=== PATIENT | female | born 1950 | race Caucasian/White ===

== ENCOUNTER → 2023-09-24 08:07 | Outpatient (REF) | payer OTHER, SELFPAY ==
[2023-09-24 12:14] LABS: ALT (SGPT) 24 U/L (0-35); AST (SGOT) 33 U/L (14-36); Albumin 3.9 g/dl (3.5-5.0); Alkaline Phosphatase 42 U/L (38-126); Blood Urea Nitrogen 28 mg/dl (7-17); Calcium 9.2 mg/dl (8.4-10.2); Carbon Dioxide 23 mmol/L (22-30); Chloride 106 mmol/L (98-107); Glucose 73 mg/dl (70-99); Potassium 4.8 mmol/L (3.5-5.1); Sodium 132 mmol/L (135-145); Total Bilirubin 0.3 mg/dl (0.2-1.3); Total Protein 6.3 g/dl (6.3-8.2); eGFR > 60.00
== END ==
LOC: RAD 08:07
PROVIDERS: ATTENDING PHYSICIAN Internal Medicine Rheumatology; FAMILY PHYSICIAN Family Medicine
DX: M81.0 Age-related osteoporosis without current pathological fracture (principal)
CPT/HCPCS: 36415; 77080; 80053

== ENCOUNTER → 2024-03-08 16:21 | Outpatient (REF) | payer OTHER, SELFPAY | LOC: RAD 16:21 | PROVIDERS: ATTENDING PHYSICIAN Orthopaedic Surgery; FAMILY PHYSICIAN Family Medicine | DX: M41.26 Other idiopathic scoliosis, lumbar region (principal) | CPT/HCPCS: 72128; 72131 ==

== ENCOUNTER 2024-06-20 09:20 | Inpatient (IN) | payer OTHER, SELFPAY ==
[2024-06-16] VITALS (13 sets, daily range): BP systolic 100–125; BP diastolic 54–77; BMI 22.4; BMI 21.6
[2024-06-16 09:50] LABS: COVID-19 Antigen Negative (Negative)
[2024-06-16 10:00] LABS: ALT (SGPT) 17 U/L (0-35); AST (SGOT) 22 U/L (14-36); Albumin 3.6 g/dl (3.5-5.0); Alkaline Phosphatase 43 U/L (38-126); Blood Urea Nitrogen 16 mg/dl (7-17); Calcium 8.6 mg/dl (8.4-10.2); Carbon Dioxide 24 mmol/L (22-30); Chloride 104 mmol/L (98-107); Estimated Creatinine Clearance 47 ml/min; Glucose 173 mg/dl (70-99); Potassium 3.9 mmol/L (3.5-5.1); Sodium 133 mmol/L (135-145); Total Bilirubin 0.4 mg/dl (0.2-1.3); Total Protein 6.1 g/dl (6.3-8.2); eGFR > 60.00
--- NOTE | 2024-06-16 11:09 | ED.GENMED ---
History of Present Illness
<VALERIY Moraes - Last Filed: 06/16/24 13:06>
General
Chief Complaint: Cold/Flu/URI Symptoms
Source: patient and family
Exam Limitations: none
Time Seen by Provider: 06/16/24 09:50
History of Present Illness
History of Present Illness:
This is a 73 y/o female with PMH of osteoporosis who presents to the ED with CC of cold/flu/URI sx x 3 days. She admits to a non-productive, dry, hacking cough that began on Thursday and is worsening. Pt had a syncopal episode this morning with
prodromal sx of dizziness, pallor and diaphoresis. She was held by her during the episode and denies hitting her head. She vomited once this morning and admits to mild nausea currently. Admits to mild headache localized to the frontal head
and a feeling of pressure in this area. Admits to receiving the flu vaccine this year. Denies any tobacco use. Denies fever/chills, palpitations, chest pain, dyspnea, sore throat, diarrhea, and abdominal pain.
If applicable-neuro sx onset
Onset of symptoms known: Yes
Date of onset of symptoms: 06/13/24
Past History
<VALERIY Moraes - Last Filed: 06/16/24 13:06>
Past History
ED Past Medical History: Other (osteoporosis )
ED Past Surgical History: Other (Spinal fusion)
Social History
Tobacco: Non-smoker
Personal:
Living: with family
Review of Systems
<VALERIY Moraes - Last Filed: 06/16/24 13:06>
Review of Systems
All Other Systems: ROS reviewed and negative except as documented in HPI and ROS
Constitutional: Reports no symptoms
EENT: Reports no symptoms
Respiratory: Reports cough
Cardiac: Reports syncope
ABD/GI: Reports nausea and vomiting
: Reports no symptoms
Musculoskeletal: Reports no symptoms
Skin: Reports no symptoms
Neurological: Reports dizzy and headache
Endocrine: Reports no symptoms
Hematologic/Lymphatic: Reports swollen glands
Phy Exam
<Lakisha Avila [facility] - Last Filed: 06/16/24 13:06>
Physical Exam
Physical Exam:
General: Pt is a white female, alert, cooperative, well-groomed, well-nourished and well-developed who appears about her stated age and is in no acute distress. Pt communicates well, makes appropriate eye contact and expresses appropriate concern
throughout history. No gross physical or neurological abnormalities noted.
Skin: [place], soft, well-hydrated; turgor with instant recoil
HEENT: head atraumatic, normocephalic; PERRLA; red reflex present; submandibular and tonsillar lymph nodes palpable and nontender; buccal mucosa pink and moist; pharynx without erythema or exudates; no hoarseness, clearly enunciates words.
Resp: muscle and respiratory effort symmetric without use of accessory muscles; mildly distant vesicular breath sounds throughout without adventitious sounds; even, quiet breathing.
Heart: No lifts or heaves visible; S1/S2 timed with carotid pulse and heard without splitting; RRR
PV: radial, dorsalis pedis and posterior tibial pulses all intact bilaterally; no edema, swelling, varicosities or tenderness in LE
Abd: soft, flat, non-distended abdomen; aorta midline with no visible pulsation; normoactive bowel sounds; no tenderness on palpation
Course
<Lakisha Avila [facility] - Last Filed: 06/16/24 13:06>
Orders/Labs/Results
Orders:
Orders
06/16/24 09:26
Electrocardiogram (*1) Urgent
Reason for Study: Syncope
06/16/24 09:27
EKG- Treatment ONCE
06/16/24 09:30
CMP [Comprehensive Metabolic Panel] Urgent
COVID-19 Antigen Urgent
Source: Nasal Swab
INF RAPID [Influenza A+B Rapid Molecular] Urgent
MASOUD Source: Nasal Swab
Specimen Description:
06/16/24 10:49
CXR2 [CR Chest - 2 Views ] Urgent
Comment:
Reason For Exam: cough, flu positive
06/16/24 11:10
Complete Blood Count/With Diff Urgent
Abnormal Lab Results
06/16/24 06/16/24
09:30 11:10
RBC 3.84 L 10^6/uL
(4.20-5.40)
MCV 99.2 H fL
(81.0-99.0)
MCH 33.9 H pg
(27.0-31.0)
MPV 11.1 H fL
(7.4-10.4)
Absolute Neuts (auto) 7.0 H 10^3/uL
(1.4-6.5)
Absolute Lymphs (auto) 0.5 L 10^3/uL
(1.2-3.4)
Absolute Monos (auto) 0.7 H 10^3/uL
(0.1-0.6)
Neutrophils % 84.3 H %
(42.2-75.2)
Lymphocytes % 6.1 L %
(20.5-51.1)
Sodium 133 L mmol/L
(135-145)
Glucose 173 H mg/dl
(70-99)
Total Protein 6.1 L g/dl
(6.3-8.2)
06/16/24 11:10
06/16/24 09:30
Vital Signs
Initial and Last Documented VS:
Initial Vital Signs
Temp Pulse Resp BP Pulse Ox
98.4 F 75 18 104/66 98
06/16/24 09:17 06/16/24 09:17 06/16/24 09:17 06/16/24 09:17 06/16/24 09:17
Last Documented Vital Signs
Temp Pulse Resp BP Pulse Ox
98.4 F 78 21 104/67 96
06/16/24 09:17 06/16/24 11:15 06/16/24 11:15 06/16/24 11:00 06/16/24 11:15
<Denny Kapoor MD - Last Filed: 06/16/24 13:24>
Orders/Labs/Results
Orders:
Orders
06/16/24 09:26
Electrocardiogram (*1) Urgent
Reason for Study: Syncope
06/16/24 09:27
EKG- Treatment ONCE
06/16/24 09:30
CMP [Comprehensive Metabolic Panel] Urgent
COVID-19 Antigen Urgent
Source: Nasal Swab
INF RAPID [Influenza A+B Rapid Molecular] Urgent
MASOUD Source: Nasal Swab
Specimen Description:
06/16/24 10:49
CXR2 [CR Chest - 2 Views ] Urgent
Comment:
Reason For Exam: cough, flu positive
06/16/24 11:10
Complete Blood Count/With Diff Urgent
Abnormal Lab Results
06/16/24 06/16/24
09:30 11:10
RBC 3.84 L 10^6/uL
(4.20-5.40)
MCV 99.2 H fL
(81.0-99.0)
MCH 33.9 H pg
(27.0-31.0)
MPV 11.1 H fL
(7.4-10.4)
Absolute Neuts (auto) 7.0 H 10^3/uL
(1.4-6.5)
Absolute Lymphs (auto) 0.5 L 10^3/uL
(1.2-3.4)
Absolute Monos (auto) 0.7 H 10^3/uL
(0.1-0.6)
Neutrophils % 84.3 H %
(42.2-75.2)
Lymphocytes % 6.1 L %
(20.5-51.1)
Sodium 133 L mmol/L
(135-145)
Glucose 173 H mg/dl
(70-99)
Total Protein 6.1 L g/dl
(6.3-8.2)
06/16/24 11:10
06/16/24 09:30
Vital Signs
Initial and Last Documented VS:
Initial Vital Signs
Temp Pulse Resp BP Pulse Ox
98.4 F 75 18 104/66 98
06/16/24 09:17 06/16/24 09:17 06/16/24 09:17 06/16/24 09:17 06/16/24 09:17
Last Documented Vital Signs
Temp Pulse Resp BP Pulse Ox
98.4 F 78 21 104/67 96
06/16/24 09:17 06/16/24 11:15 06/16/24 11:15 06/16/24 11:00 06/16/24 11:15
<VALERIY Moraes - Last Filed: 06/16/24 13:06>
MDM/Problems Addressed
Differential Diagnosis Includes:
Flu, r/o secondary flu pneumonia vs bacterial pneumonia.
<VALERIY Moraes - Last Filed: 06/16/24 13:06>
*Critical Care Note
Total Time (30-74mins, 75-104mins- exclusive of procedures): Not Applicable
<Denny Kapoor MD - Last Filed: 06/16/24 13:24>
*Radiology
Radiology exam reviewed: preliminary read by ED provider (Negative chest x-ray) and radiology read reviewed (Negative chest x-ray)
*Pulse Oximetry
Patient hypoxic: no
ED Attending Note
<VALERIY Moraes - Last Filed: 06/16/24 13:06>
-
Portions of this chart may have been created with voice recognition software.� Occasional wrong word or��sound alike� substitutions may have occurred due to the inherent limitations of voice recognition software.
<Denny Kapoor MD - Last Filed: 06/16/24 13:24>
ED Attending Note
Patient seen and examined by attending physician: Yes
I performed the substantive portion of visit, reviewed & personally made and approve the management plan that is documented in note by myself or ROGER.: Yes
ED Attending Note:
73-year-old female started with a cough 2 to 3 days ago. Probably 3 days ago. Some congestion myalgias. This morning had a syncopal episode while sitting. [place] lightheaded prior. No chest pain or shortness of breath. Has been generally weak
appearing.
GENERAL: Alert and oriented in no apparent distress
EYE: Orbits normal.
NECK: Supple
CARDIAC: Regular rate and rhythm without any obvious murmurs.
LUNGS: No respiratory distress. Occasional cough. No wheezing rhonchi or rales.
ABDOMEN: Soft, without focal tenderness or distention
NEUROLOGICAL: Alert and oriented , grossly non-focal
SKIN: Warm and dry, no rash or lesion, no discoloration, skin intact.
MUSCULOSKELETAL: No edema,no deformity.Good color
PSYCH: Normal and appropriate interaction.
Patient influenza positive. Other labs stable. Minimal hyperglycemia. Monitor normal sinus rhythm. EKG normal sinus rhythm with no acute changes. QT normal. Patient symptom complex all consistent with the flu and vasovagal syncope secondary to
dehydration and weakness in the flu. Nothing to support pulmonary emboli. No pleuritic pain no shortness of breath. Stable vital signs. Patient and family were offered admission if she feels too weak to go home although medically this can be
managed at home. They are comfortable with outpatient management. Discussed Tamiflu. She is likely day 3. Indication is minimal at this time. It was offered however. Personally at this time I would hold off Tamiflu and family is comfortable
with this. We will ambulate prior to discharge
Discharge Plan
Departure
Patient Disposition: Home (Routine Discharge)
Date of Disposition: 06/16/24
Time of Disposition: 13:20
Patient with high blood pressure during this ER visit?: No
Discharge Problem:
Influenza, syncope
Instructions: Flu in adults - Discharge instructions, Syncope (fainting) - Discharge instructions
Referrals:
Denny Kang, [Family Provider] - Follow up in 2-3 days
Activity Restrictions/Additional Instructions:
Of note, your blood sugar is mildly elevated. This is nothing emergent but should be followed up routinely with your primary physician
Interventions
Interventions:
*Risk Screen - Suicide Last Done: 06/16/24 09:17
*General Assessment Last Done: 06/16/24 09:17
*Neglect/Abuse Screening Last Done: 06/16/24 09:17
*ED COVID-19 Vaccine History Last Done: 06/16/24 09:17
ED- Pulmonary Assessment Last Done: 06/16/24 11:30
Discharge Date and Time
Print Language: HUNGARIAN
[2024-06-16 11:32] LABS: % Basophils 0.4 % (0-2); % Eosinophils 0.1 % (0-6); % Immature Granulocytes 0.5 % (0-0.5); % Lymphocytes 6.1 % (20.5-51.1); % Monocytes 8.6 % (1.7-9.3); % Neutrophils 84.3 % (42.2-75.2); Absolute Lymphocytes 0.5 10^3/uL (1.2-3.4); Absolute Monocytes 0.7 10^3/uL (0.1-0.6); Hematocrit 38.1 % (37.0-47.0); Mean Corp Hgb Conc. 34.1 g/dL (33.0-37.0); Mean Corpuscular Hgb 33.9 pg (27.0-31.0); Mean Corpuscular Volume 99.2 fL (81.0-99.0); Nucleated Red Blood Cells % 0 %; Red Blood Cell Count 3.84 10^6/uL (4.20-5.40); White Blood Cell Count 8.2 10^3/uL (4.8-10.8)
[2024-06-16 12:01] LABS: Platelet Count 132 10^3/uL (130-400)
[2024-06-16 12:02] LABS: Mean Platelet Volume 11.1 fL (7.4-10.4)
--- NOTE | 2024-06-16 13:07 | ED.GENMED ---
History of Present Illness
<Denny Kapoor MD - Last Filed: 06/16/24 13:43>
General
Chief Complaint: Cold/Flu/URI Symptoms
Time Seen by Provider: 06/16/24 09:50
Past History
<VALERIY Moraes - Last Filed: >
Past History
ED Past Medical History: Other (osteoporosis )
ED Past Surgical History: Other (Spinal fusion)
Social History
Tobacco: Non-smoker
Personal:
Living: with family
Course
<Denny Kapoor MD - Last Filed: 06/16/24 13:43>
Orders/Labs/Results
Orders:
Orders
06/16/24 09:26
Electrocardiogram (*1) Urgent
Reason for Study: Syncope
06/16/24 09:27
EKG- Treatment ONCE
06/16/24 09:30
CMP [Comprehensive Metabolic Panel] Urgent
COVID-19 Antigen Urgent
Source: Nasal Swab
INF RAPID [Influenza A+B Rapid Molecular] Urgent
MASOUD Source: Nasal Swab
Specimen Description:
06/16/24 10:49
CXR2 [CR Chest - 2 Views ] Urgent
Comment:
Reason For Exam: cough, flu positive
06/16/24 11:10
Complete Blood Count/With Diff Urgent
Abnormal Lab Results
06/16/24 06/16/24
09:30 11:10
RBC 3.84 L 10^6/uL
(4.20-5.40)
MCV 99.2 H fL
(81.0-99.0)
MCH 33.9 H pg
(27.0-31.0)
MPV 11.1 H fL
(7.4-10.4)
Absolute Neuts (auto) 7.0 H 10^3/uL
(1.4-6.5)
Absolute Lymphs (auto) 0.5 L 10^3/uL
(1.2-3.4)
Absolute Monos (auto) 0.7 H 10^3/uL
(0.1-0.6)
Neutrophils % 84.3 H %
(42.2-75.2)
Lymphocytes % 6.1 L %
(20.5-51.1)
Sodium 133 L mmol/L
(135-145)
Glucose 173 H mg/dl
(70-99)
Total Protein 6.1 L g/dl
(6.3-8.2)
06/16/24 11:10
06/16/24 09:30
Vital Signs
Initial and Last Documented VS:
Initial Vital Signs
Temp Pulse Resp BP Pulse Ox
98.4 F 75 18 104/66 98
06/16/24 09:17 06/16/24 09:17 06/16/24 09:17 06/16/24 09:17 06/16/24 09:17
Last Documented Vital Signs
Temp Pulse Resp BP Pulse Ox
98.4 F 94 20 100/62 97
06/16/24 09:17 06/16/24 13:41 06/16/24 13:41 06/16/24 13:41 06/16/24 13:41
<VALERIY Moraes - Last Filed: >
Orders/Labs/Results
Orders:
Orders
06/16/24 09:26
Electrocardiogram (*1) Urgent
Reason for Study: Syncope
06/16/24 09:27
EKG- Treatment ONCE
06/16/24 09:30
CMP [Comprehensive Metabolic Panel] Urgent
COVID-19 Antigen Urgent
Source: Nasal Swab
INF RAPID [Influenza A+B Rapid Molecular] Urgent
MASOUD Source: Nasal Swab
Specimen Description:
06/16/24 10:49
CXR2 [CR Chest - 2 Views ] Urgent
Comment:
Reason For Exam: cough, flu positive
06/16/24 11:10
Complete Blood Count/With Diff Urgent
Abnormal Lab Results
06/16/24 06/16/24
09:30 11:10
RBC 3.84 L 10^6/uL
(4.20-5.40)
MCV 99.2 H fL
(81.0-99.0)
MCH 33.9 H pg
(27.0-31.0)
MPV 11.1 H fL
(7.4-10.4)
Absolute Neuts (auto) 7.0 H 10^3/uL
(1.4-6.5)
Absolute Lymphs (auto) 0.5 L 10^3/uL
(1.2-3.4)
Absolute Monos (auto) 0.7 H 10^3/uL
(0.1-0.6)
Neutrophils % 84.3 H %
(42.2-75.2)
Lymphocytes % 6.1 L %
(20.5-51.1)
Sodium 133 L mmol/L
(135-145)
Glucose 173 H mg/dl
(70-99)
Total Protein 6.1 L g/dl
(6.3-8.2)
06/16/24 11:10
06/16/24 09:30
Vital Signs
Initial and Last Documented VS:
Initial Vital Signs
Temp Pulse Resp BP Pulse Ox
98.4 F 75 18 104/66 98
06/16/24 09:17 06/16/24 09:17 06/16/24 09:17 06/16/24 09:17 06/16/24 09:17
Last Documented Vital Signs
Temp Pulse Resp BP Pulse Ox
98.4 F 94 20 100/62 97
06/16/24 09:17 06/16/24 13:41 06/16/24 13:41 06/16/24 13:41 06/16/24 13:41
<Denny Kapoor MD - Last Filed: 06/16/24 13:43>
Update Note
Update Note:
We attempted to send the patient home. She did not tolerate standing walking moving around. Will be admitted for fluids and further care
ED Attending Note
<VALERIY Moraes - Last Filed: >
-
Portions of this chart may have been created with voice recognition software.� Occasional wrong word or��sound alike� substitutions may have occurred due to the inherent limitations of voice recognition software.
Discharge Plan
Departure
Patient Disposition: Admit
Date of Disposition: 06/16/24
Time of Disposition: 13:20
Patient with high blood pressure during this ER visit?: No
Discharge Problem:
Influenza, syncope
Instructions: Flu in adults - Discharge instructions, Syncope (fainting) - Discharge instructions
Referrals:
Denny Kang, [Family Provider] - Follow up in 2-3 days
Activity Restrictions/Additional Instructions:
Of note, your blood sugar is mildly elevated. This is nothing emergent but should be followed up routinely with your primary physician
Interventions
Interventions:
*Risk Screen - Suicide Last Done: 06/16/24 09:17
*General Assessment Last Done: 06/16/24 09:17
*Neglect/Abuse Screening Last Done: 06/16/24 09:17
*ED COVID-19 Vaccine History Last Done: 06/16/24 09:17
ED- Pulmonary Assessment Last Done: 06/16/24 11:30
Discharge Date and Time
Print Language: SETSWA[place]
--- NOTE | 2024-06-16 14:41 | HPS.HSE ---
Family Physician
-
Family Physician: Denny Kang
Chief Complaint
-
syncope
History of Present Illness
73-year-old female past medical history of osteoporosis here with cough and shortness of breath for the past day. Denies any fever or sore throat. Has some headache and bodyaches. She had an episode of passing out today after breakfast while
seated at the table. She had an episode of vomiting afterwards. No diarrhea. No sick contacts.
She does not smoke or drink alcohol.
Medical History
Past Medical History
Past Medical History: Reports Other (osteoporosis )
Past Surgical History: Reports Other (spine surgery, foot surgery )
Social History
Tobacco: Non-smoker
Alcohol: None
Drug: None
Family History
Family History: Not pertinent
Allergies / Home Medications
Allergies reflects when Allergies were last updated in [facility].
Home Medications with original date entered in [facility]
Allergy/Medication List:
Not available
Review of Systems
-
History Source: Patient
A 12 point ROS was completed and negative except as noted: Yes
Constitutional: Reports No Symptoms
EENT: Reports No Symptoms
Respiratory: Reports No Symptoms
Cardiac: Reports No Symptoms
Abdomen/GI: Reports No Symptoms
: Reports No Symptoms
Musculoskeletal: Reports No Symptoms
Skin: Reports No Symptoms
Neurological: Reports No Symptoms
Endocrine: Reports No Symptoms
Hematologic/Lymphatic: Reports No Symptoms
Psych: Reports No Symptoms
Physical Exam
Vital Signs
Vital Signs
Temp Pulse Resp BP Pulse Ox
98.4 F 80 24 105/70 96
06/16/24 09:17 06/16/24 14:15 06/16/24 14:15 06/16/24 14:00 06/16/24 14:15
Physical Exam
General: Well Developed, Well Nourished and No Apparent Distress
HEENT: NormoCephalic, Moist mucous membranes and Atraumatic
Respiratory: Clear
Cardiac: S1/S2 and Regular Rhythm; No Murmur or Rub
GI: Soft, Non Tender, Non Distended and Normal Bowel Sounds; No Organomegaly
Rectal: Deferred by Provider
Musculoskeletal: No Clubbing, No Cyanosis and No Edema
Skin: No Rash
Neuro: Nonfocal/grossly intact
Laboratory Results
-
06/16/24 11:10
06/16/24 09:30
Laboratory Results
Total Bilirubin 0.4 mg/dl (0.2-1.3) 06/16/24 09:30
AST 22 U/L (14-36) 06/16/24 09:30
ALT 17 U/L (0-35) 06/16/24 09:30
Alkaline Phosphatase 43 U/L (38-126) 06/16/24 09:30
Data Reviewed
-
Lab Data: Labs Reviewed by me
Old Records: Reviewed
Impression/Plan
-
IMPRESSION:
PLAN:
# Influenza A infection
-Chest x-ray unremarkable
-Tamiflu
# Syncope secondary to decreased p.o. intake from influenza
-IV fluids
Osteoporosis
-on Prolia
Spinal stenosis status post surgery
-Continue Lyrica, celecoxib, Tylenol
Full code
DVT prophylaxis�heparin
Regular diet
--- NOTE | 2024-06-16 15:00 | PHANOTE ---
med rec note- spouse going home to verify topiramate dose [facility] but patient stated there 50mg. patient med list does not have it list on the med list
[2024-06-16] MEDS: NSS 1000 IV (19:23)
[2024-06-16] MEDS: HEPARIN 5000 UNITS SC (19:33)
[2024-06-16] MEDS: TAMIFLU 30 MG PO (19:43)
[2024-06-16] MEDS: VITAMIN D3 (cholecalciferol) 25 MCG PO (19:44)
[2024-06-16] MEDS: OSCAL 500 + D 500 MG PO (19:54)
[2024-06-16] MEDS: LYRICA 225 MG PO (21:05)
[2024-06-16] MEDS: ZOFRAN 4 MG IV (23:39)
[2024-06-16] MEDS: OFIRMEV 100 IV (23:45)
[2024-06-17] VITALS (8 sets, daily range): BP systolic 85–121; BP diastolic 50–68; PULSE 92; O2SAT 92
--- NOTE | 2024-06-17 00:23 | PTCARENOTE ---
Assumed care of patient at from day shift RN. Pt in bed, flat and drowsy. AAOX3. at bedside.
2330 Pt c/o nausea, vomited moderate amount. Temp 100.9. PRN Zofran ordered by WINDOWS VMWARE ENGINEER and administered. IV Ofirmev ordered and administered. BP elevated.
0020 Pt states she feels 'a little better.' No further vomiting. BP 101/54.
[2024-06-17 09:08] LABS: Hematocrit 38.6 % (37.0-47.0); Mean Corp Hgb Conc. 33.7 g/dL (33.0-37.0); Mean Corpuscular Hgb 33.6 pg (27.0-31.0); Mean Corpuscular Volume 99.7 fL (81.0-99.0); Mean Platelet Volume 11.6 fL (7.4-10.4); Platelet Count 127 10^3/uL (130-400); Red Blood Cell Count 3.87 10^6/uL (4.20-5.40); Red Cell Dist. Width 14.3 % (11.5-14.5); White Blood Cell Count 5.2 10^3/uL (4.8-10.8)
[2024-06-17 09:12] LABS: ALT (SGPT) 15 U/L (0-35); AST (SGOT) 26 U/L (14-36); Albumin 3.1 g/dl (3.5-5.0); Alkaline Phosphatase 47 U/L (38-126); Blood Urea Nitrogen 12 mg/dl (7-17); Calcium 8.4 mg/dl (8.4-10.2); Carbon Dioxide 19 mmol/L (22-30); Chloride 106 mmol/L (98-107); Estimated Creatinine Clearance 53 ml/min; Glucose 132 mg/dl (70-99); Potassium 3.8 mmol/L (3.5-5.1); Sodium 134 mmol/L (135-145); Total Bilirubin 0.5 mg/dl (0.2-1.3); Total Protein 5.7 g/dl (6.3-8.2); eGFR > 60.00
[2024-06-17 09:56] LABS: Absolute Neutrophils -Man Diff 4.6 10^3/uL (1.4-6.5); Band Neutrophils 16 % (0-3); Lymphocytes 7 % (20-51); Monocytes 4 % (2-9); Platelets Checked Yes; Segmented Neutrophils 73 % (42-75)
[2024-06-17 09:57] LABS: Normal RBC Morphology Yes; Total Cells Counted 100
[2024-06-17] MEDS: OSCAL 500 + D PO (10:42)
[2024-06-17] MEDS: VITAMIN D3 (cholecalciferol) PO (10:42)
[2024-06-17] MEDS: TAMIFLU 30 MG PO ×2 (10:44→21:35)
[2024-06-17] MEDS: PEPCID 40 MG PO (10:44)
[2024-06-17] MEDS: HEPARIN 5000 UNITS SC ×2 (10:45→21:34)
[2024-06-17] MEDS: LYRICA 150 MG PO (10:45)
[2024-06-17] MEDS: NSS 1000 IV (10:46)
[2024-06-17] MEDS: ZYRTEC 5 MG PO (10:46)
[2024-06-17] MEDS: TYLENOL 650 MG PO ×2 (13:34→21:34)
--- NOTE | 2024-06-17 14:33 | W.PN.HOSP.TC ---
Today's Communication/Plan
-
see note
Assessment / Plan
Assessment / Plan
1. Influenza A infection
Acute hypoxic respite insufficiency
-Chest x-ray did not show any over infiltrate
-Symptom onset less than 48 hours, started on Tamiflu
-Patient has significant weakness/lethargy
-Poor oral intake, IV fluid to be kept as patient developing hypoxia
-Continues to spike fever, symptomatic care. No signs of superimposed bacterial pneumonia. Monitor off abx.
2. Syncope
-Patient already having some pulmonary congestion
-Borderline/soft blood pressure, will add midodrine for pressure support
Osteoporosis
-on Prolia
Spinal stenosis status post surgery
-Continue Lyrica, celecoxib, Tylenol
Full code
DVT prophylaxis�heparin
Care plan discussed with patient spouse at bedside
Total time spent 52 mins
Anticipated Discharge: 24 - 48 hours
Subjective/Interval History
-
Date of Service: June 17, 2024
Patient hypoxic requiring oxygen support
Patient also quite lethargic/tired
Remains febrile
Minimal cough
Objective Data
-
Labs:
Laboratory Results
06/17/24
07:18
WBC 5.2
Hgb 13.0
Hct 38.6
Plt Count 127 L
Sodium 134 L
Potassium 3.8
Chloride 106
Carbon Dioxide 19 L
BUN 12
Creatinine 0.7
Glucose 132 H
Calcium 8.4
Total Bilirubin 0.5
AST 26
ALT 15
Alkaline Phosphatase 47
Vital Signs:
Vital Signs
Temp Pulse Resp BP Pulse Ox
103 F H 94 28 112/68 90
06/17/24 13:00 06/17/24 11:20 06/17/24 11:20 06/17/24 11:20 06/17/24 12:05
I&O
06/16/24 06/17/24 06/18/24
06:59 06:59 06:59
Intake Total 1000 / 1000
Balance 1000 / 1000
Review of Systems
-
Respiratory: Reports Cough and Trouble Breathing
Cardiac: Reports No Symptoms
Abdomen/GI: Reports No Symptoms
Physical Exam
-
General: No Apparent Distress and Comfortable
HEENT: Negative Oxygen
Cardiac: Regular Rhythm and S1/S2; Negative Murmur or Rub
GI: Soft, Nontender and Nondistended
Musculoskeletal: No Edema
Neuro: Awake, Alert, Oriented, No Motor Deficits and Nonfocal/Grossly Intact
Psych: Calm
--- NOTE | 2024-06-17 15:27 | CM ---
CM reviewed chart, patient seen bedside. Patient positive for Flu. Patient resides with her spouse in a single story home, no steps to enter. Patient denies DME, currently on O2, not on home O2. Patient reports VN in past after spine surgery, unsure
name of agency. Patient denies SNF. Patient confirms PCP Denny Kang, pharmacy [facility], confirms prescription coverage. Patient provided with VALLE form, verbally reviewed, placed in chart. CM will continue to follow for all discharge planning
needs.
Plan; home with no needs likely.
[2024-06-17] MEDS: ProAmatine 5 MG PO (15:29)
[2024-06-17] MEDS: MOTRIN 400 MG PO (22:48)
[2024-06-17] MEDS: LYRICA 225 MG PO (22:49)
[2024-06-17] MEDS: OSCAL 500 + D 500 MG PO (22:49)
[2024-06-17] MEDS: VITAMIN D3 (cholecalciferol) 25 MCG PO (22:49)
[2024-06-18] VITALS (9 sets, daily range): BP systolic 70–126; BP diastolic 40–75; PULSE 87–109; O2SAT 96
[2024-06-18] MEDS: NSS IV (00:10)
[2024-06-18] MEDS: ProAmatine 5 MG PO ×2 (00:59→04:06)
--- NOTE | 2024-06-18 04:25 | W.PN.UPDATE ---
Addendum entered and electronically signed by JUAN JOSE Garcia 06/18/24 05:25:
procal 16.53
lactic 1.5
bnp 955
creat up to 1.3 (0.9 yesterday)---> d/t poor appetite or from hypotensive state. Will reinstate fluids
Original Note:
Update Note
Progress Note Update
0100 RN reporting pt hypotensive sbp 70/40s manuallly. Pt continues with lethargy (unchanged from admit), but arousable and aaox3. PRN 5mg midodrine given. There was concern for possible fluis overload during previous shift for IVF were shut off.
Will hold of giving IVF for now.
0400 Repeat bP 80/44 manually. HR 56. Mentation remains same. Will give another dose of midodrine. Get stat labs. Also oxygen increased from 4L to 6L. Recheck CXR. Low threshold to transfer to IMU for closer monitoring and possible pressor.
0500 pCXR with RLL Pneumonia changed from cxr taken 06/16/23. Start abx
[2024-06-18 04:39] LABS: Hematocrit 33.6 % (37.0-47.0); Hemoglobin 11.3 g/dL (12.0-16.0); Mean Corp Hgb Conc. 33.6 g/dL (33.0-37.0); Mean Corpuscular Hgb 33.7 pg (27.0-31.0); Mean Corpuscular Volume 100.3 fL (81.0-99.0); Mean Platelet Volume 11.4 fL (7.4-10.4); Platelet Count 148 10^3/uL (130-400); Red Blood Cell Count 3.35 10^6/uL (4.20-5.40); Red Cell Dist. Width 14.2 % (11.5-14.5); White Blood Cell Count 3.5 10^3/uL (4.8-10.8)
[2024-06-18 05:01] LABS: Blood Urea Nitrogen 19 mg/dl (7-17); Calcium 8.3 mg/dl (8.4-10.2); Carbon Dioxide 20 mmol/L (22-30); Chloride 104 mmol/L (98-107); Estimated Creatinine Clearance 29 ml/min; Glucose 122 mg/dl (70-99); Sodium 132 mmol/L (135-145); eGFR 43.15
[2024-06-18 05:13] LABS: Lactic Acid 1.5 mmol/L (0.7-2.0)
[2024-06-18 05:21] LABS: Procalcitonin 16.53 ng/ml (0.0-0.25)
[2024-06-18 05:21] LABS: NT-proBNP 966 pg/ml
[2024-06-18] MEDS: STERILE WATER FOR INJECTION 10 ML IV (05:34)
[2024-06-18] MEDS: ROCEPHIN 1000 MG IV (05:34)
[2024-06-18] MEDS: NSS 1000 IV (05:34)
--- NOTE | 2024-06-18 07:59 | PTCARENOTE ---
0100: Pt's manual BP in both upper arms 70/40, HR in 60s on tele. Pt denies feeling lightheaded while in bed, AAOx3. PRN Midodrine 5mg provided to pt. VIJAYA Montez notified, will hold off on IVF d/t concern for fluid overload during day.
0330: Repeat BP after midodrine was 80/44 manually in pt's right upper arm, pt is still asymptomatic. VIAJYA Montez notified, stat midodrine 5mg ordered and given to pt. Stat portable CXR, proBNP, lactic acid, procalcitonin levels ordered by ICE CREAM TRUCK DRIVER.
0500: ICE CREAM TRUCK DRIVER read CXR results and ordered NS at 80 mL/hr as well as added new orders for IV Rocephin and PO Vibramycin. Pt updated on plan of care although pt not aware of new CXR results at this time as no provider was on the unit to read them to her.
0630: Pt reported feeling lightheaded after attempting to urinate on commode and was unable to void during shift. Pt bladder scan result showing 479 mL. VIJAYA Montez notified, orders placed for bladder scan and straight cath per protocol. Pt
straight cathed by this RN and resulted as 500 mL dark yellow urine. Bed alarm placed under pt d/t lightheadedness and low BP. Repeat manual BP by this RN in pt's right upper arm reading 86/48.
See VIJAYA Montez note.
[2024-06-18] MEDS: TAMIFLU 30 MG PO ×2 (09:00→20:16)
[2024-06-18] MEDS: OSCAL 500 + D 500 MG PO ×2 (09:00→20:16)
[2024-06-18] MEDS: PEPCID 40 MG PO (09:00)
[2024-06-18] MEDS: VIBRAMYCIN 100 MG PO (09:00)
[2024-06-18] MEDS: ZYRTEC 5 MG PO (09:00)
[2024-06-18] MEDS: VITAMIN D3 (cholecalciferol) 25 MCG PO ×2 (09:01→20:16)
[2024-06-18] MEDS: HEPARIN 5000 UNITS SC ×2 (09:01→20:16)
[2024-06-18] MEDS: LYRICA 150 MG PO (09:01)
--- NOTE | 2024-06-18 14:21 | W.PN.HOSP.TC ---
Today's Communication/Plan
-
see note
Assessment / Plan
Assessment / Plan
1. Influenza A infection
Acute hypoxic respite failure
-Chest x-ray did not show any over infiltrate
-Symptom onset less than 48 hours, started on Tamiflu
-Patient has significant weakness/lethargy
-Oral intake is better, oxygen requirement increased. Hold further IV fluid
2. Superimposed bacterial pneumonia
-Elevated procalcitonin ~ 16.5
-Started on empiric Rocephin/doxycycline
3. Hyponatremia
-mild, monitor
4. TOMAS
-Patient was getting IV fluid for last 36 hours, will hold further IV fluid as patient has a lot of secretions
-Suspecting prerenal from hypotension
-Avoid nephrotoxic medication
-Further testing if renal function does not improve in next 24 to 48 hours
5. Syncope
-Patient already having some pulmonary congestion
-Borderline/soft blood pressure, will add midodrine for pressure support
Osteoporosis
-on Prolia
Spinal stenosis status post surgery
-Continue Lyrica, celecoxib, Tylenol
Full code
DVT prophylaxis�heparin
Care plan discussed with patient spouse at bedside
Total time spent 53 mins
Anticipated Discharge: > 48 hours
Subjective/Interval History
-
Date of Service: June 18, 2024
Patient subjectively better
Continues to have significant secretions/hypoxic
afebrile in night
Objective Data
-
Labs:
Laboratory Results
06/18/24 06/18/24
04:24 04:26
WBC 3.5 L
Hgb 11.3 L
Hct 33.6 L
Plt Count 148
Sodium 132 L
Potassium 4.0
Chloride 104
Carbon Dioxide 20 L
BUN 19 H
Creatinine 1.3 H
Glucose 122 H
Calcium 8.3 L
Vital Signs:
Vital Signs
Temp Pulse Resp BP Pulse Ox
98.1 F 88 24 106/61 95
06/18/24 11:34 06/18/24 11:34 06/18/24 11:34 06/18/24 11:34 06/18/24 11:34
I&O
06/17/24 06/18/24 06/19/24
06:59 06:59 06:59
Intake Total 1000 / 1000 680 / 680 700 / 700
Output Total 500 / 500
Balance 1000 / 1000 680 / 680 200 / 200
Review of Systems
-
Respiratory: Reports Cough; Denies Wheezing
Cardiac: Reports No Symptoms
Abdomen/GI: Reports No Symptoms
Physical Exam
-
General: No Apparent Distress and Comfortable
HEENT: Negative Oxygen
Cardiac: Regular Rhythm and S1/S2; Negative Murmur or Rub
GI: Soft, Nontender and Nondistended
Musculoskeletal: No Edema
Neuro: Awake, Alert, Oriented, No Motor Deficits and Nonfocal/Grossly Intact
Psych: Calm
[2024-06-18] MEDS: TYLENOL 650 MG PO (16:07)
[2024-06-18] MEDS: ZOFRAN 4 MG IV (18:07)
[2024-06-18] MEDS: MIRALAX 17 GRAMS PO (18:17)
[2024-06-18] MEDS: VANCOCIN 530 MG IV (18:17)
[2024-06-18] MEDS: LYRICA 225 MG PO (22:05)
--- NOTE | 2024-06-18 23:39 | PHA.VAN.IN ---
Assessment
- Assessment
Renal Function: Appears elevated from baseline (Scr 0.7 -->1.3)
Maximum Temperature: 102.3
Concomitant Antimicrobials: Ceftriaxone
Plan
- Plan
Initial / Loading Dose: Vancomycin 1500mg given 06/18 at 1817
Monitoring: Will check random vancomycin level with 1/12 AM labs.
MRSA Screen: Ordered per protocol
Will dose by level due to current renal function.
Pharmacokinetics Vancomycin I
- -
Patient Age: 73
Patient Sex: Female
Vancomycin Day #: 1
Indication: Pulmonary/Respiratory
Requesting Provider: Dr. Veliz
Pertinent Antimicrobial Allergies:
No known allergies
Height / Weight:
Height 5 ft 1 in
Actual Weight 51.846 kg
- Vital Signs / Lab Results
Temp Pulse Resp BP Pulse Ox
98.1 F 71 20 105/75 98
06/18/24 19:30 06/18/24 19:30 06/18/24 19:30 06/18/24 19:30 06/18/24 19:30
Lab Results - Hematology
06/16/24 06/16/24 06/16/24
10:42 11:10
WBC Cancelled Cancelled 8.2
Band Neutrophils
06/17/24 06/18/24
07:18 04:26
WBC 5.2 3.5 L
Band Neutrophils 16 H
Lab Results - Chemistry
06/16/24 06/17/24 06/18/24
09:30 07:18 04:24
BUN 16 12 19 H
Creatinine 0.8 0.7 1.3 H
Estimated Creat Clear 47 53 29
Albumin 3.6 3.1 L
06/18/24
04:26
Lactic Acid 1.5
[2024-06-19 03:00] VITALS: BP 83/49
[2024-06-19] MEDS: STERILE WATER FOR INJECTION 10 ML IV (06:04)
[2024-06-19] MEDS: ROCEPHIN 1000 MG IV (06:05)
[2024-06-19 07:18] VITALS: BP 108/54
--- NOTE | 2024-06-19 07:48 | CON.NEURO ---
Consultation
Order
Date of Consultation: 06/19/24
Requesting Provider: Micky Veliz MD
Reason for Consult: Encephalopathy, diplopia
Neurology Consultation Note.
HPI: This is a 73-year-old right-handed woman who presented to [facility] on 03/16/2025 with encephalopathy. According to the patient she developed transient vertigo with associated vomiting on the day of presentation. Based on MRI
she did have transient diplopia that she does not recall having. She also does not recall the events of first couple days of hospitalization. Ms. Miller admits to mild holocephalic headache. No reports of diplopia, tinnitus, ear pain or vertigo
symptoms in the past.
VS by EMS' 102/78, 72, fingerstick�202.
VS: 104/66-70/40(06/18/2024), 75, T max-39.4 , 98 % on 3-6 L of NC. Nasal swab�influenza A positive
EKG: NSR, QTc Int : 441 ms.
PDMP: Pregabalin 75 Mg�450 capsules filled in on 04/08/2024.
Labs: MCV�99.2, sodium�133, glucose�173, normal WBCs.
Brain MRI wo [place]-no acute infarcts, left sphenoid sinusitis, mild atrophy.
PMH: scoliosis, osteoporosis, IGT, vitamin D deficiency, GERD
PSH: T10-S1 fusion on, left ankle surgery, hysterectomy, left wrist surgery
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
FH: Mother�dementia, parkinsonism (in her early 80s), father�EtOH addiction.
All:NKDA
ROS: Constitutional: Positive for fatigue
HENT: Positive for hearing impairment, transient vertigo, dysphonia
Eyes: Negative. Negative for photophobia, pain and visual disturbance.
Respiratory: Positive for cough
Cardiovascular: Negative for chest pain, palpitations and leg swelling.
Gastrointestinal: Negative for abdominal pain and vomiting.
Endocrine: Negative. Negative for cold intolerance.
Genitourinary: Positive for urinary retention
Musculoskeletal: Positive for arthralgias
Skin: Negative for rash.
Allergic/Immunologic: Negative. Negative for immunocompromised state.
Neurological: Positive for headache, transient vertigo, confusion
Psychiatric/Behavioral: Negative for behavioral problems, confusion and hallucinations.
General: Slim. In no acute distress.
Cardio: Regular rate and rhythm without murmur. Extremities are without cyanosis or edema.
Neuro:
Mental Status: Alert, oriented to person, place, and date. Able to do serial sevens. Mild decrease in processing time. Good fund of knowledge. Follows complex requests across the midline. Comprehension, naming, and repetition intact.
Cranial Nerves: Pupils are equally round and reactive to light. EOMs full. Visual perez full to confrontation. No ptosis. No nystagmus. V1-V3 intact to light touch and pinprick bilaterally, symmetric. Face symmetric. Poor hearing AU. The
palate elevated well. SCMs and traps 5/5. Tongue midline. Moderate dysphonia, hypophonia
Motor: Normal bulk and tone with augmentation. No pronator or arm drift. Strength 5/5 throughout. No clonus.
Reflexes: Negative grasp. Trace throughout.
Sensory: Reduced vibration at the toes and ankles.
Coordination: No dysmetria or tremor.
Gait: deferred
Assessment and Plan:
I. Transient vertigo, likely peripheral
II. Influenza A infection with superimposed CAP with acute hypoxic respiratory failure
III. Transient encephalopathy, likely infectious/vascular (hypotension) hypoxic
IV. 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
V. Acute left sphenoid sinusitis.
-Continue telemetry monitoring
-Avoid cerebral hypoperfusion
-Fall precautions
-Please check vitamin B12, thiamine, SPEP/IF, A1C
-Avoid medications known to cause cognitive side effects (Topamax, pregabalin)
-PT.
-Outpatient ENT consult
-Please recall neurology service with any questions or concerns
-DVT prophylaxis.
I personally reviewed all radiology and labs along with past medical records pertinent to current medical problems. Total time spent in patient care is 60 minutes.
Thank you for allowing us to participate in the care of this patient. We will continue to follow. Please do not hesitate to contact us with any questions or concerns.
Subjective/Objective
Subjective Data
Date of Service: June 19, 2024
Objective Data
Vital Signs
Temp Pulse Resp BP Pulse Ox
37.2 C 72 20 108/54 96
06/19/24 07:18 06/19/24 07:18 06/19/24 07:18 06/19/24 07:18 06/19/24 07:18
Sodium 132 mmol/L (135-145) L 06/18/24 04:24
Potassium 4.0 mmol/L (3.5-5.1) 06/18/24 04:24
BUN 19 mg/dl (7-17) H 06/18/24 04:24
Glucose 122 mg/dl (70-99) H 06/18/24 04:24
Calcium 8.3 mg/dl (8.4-10.2) L 06/18/24 04:24
Ghe-I-Wigxlyvaizn Pept 966 pg/ml 06/18/24 04:27
Patient Allergies
No Known Allergies Allergy (Unverified 06/16/24 14:59)
Medications
-
Active Medications
Generic Name Dose Route Start Last Admin
Trade Name Freq PRN Reason Stop Dose Admin
Acetaminophen 650 mg 06/17/24 13:52 06/18/24 16:07
Acetaminophen 325 Mg Tablet PO 07/14/24 19:48 650 mg
Q6HPRN PRN Administration
Mild pain/Temp>100.4F
Calcium/Vitamin D 500 mg 06/16/24 20:00 06/18/24 20:16
Calcium Carbonate 500 Mg/Vitamin D 5 Mcg (200 Units) Tablet PO 07/14/24 19:59 500 mg
BID GUILLE Administration
Ceftriaxone Sodium 1,000 mg 06/18/24 06:00 06/19/24 06:05
Ceftriaxone 1000 Mg / 10 Ml Vial IV 1,000 mg
Q24H GUILLE Administration
Cetirizine HCl 5 mg 06/17/24 08:00 06/18/24 09:00
Cetirizine Hcl 10 Mg Tablet PO 07/15/24 07:59 5 mg
DAILY GUILLE Administration
Cholecalciferol 25 mcg 06/16/24 20:00 06/18/24 20:16
Cholecalciferol (Vitamin D3) 25 Mcg Tablet (1,000 Units) PO 07/14/24 19:59 25 mcg
BID GUILLE Administration
Famotidine 40 mg 06/17/24 08:00 06/18/24 09:00
Famotidine 40 Mg Tablet PO 07/15/24 07:59 40 mg
DAILY GUILLE Administration
Heparin Sodium 5,000 units 06/16/24 20:00 06/18/24 20:16
Heparin 5,000 Units/Ml 1 Ml Vial SC 07/14/24 19:59 5,000 units
Q12 GUILLE Administration
Vancomycin HCl 1 each/ Device 0 mls @ 0 mls/hr 06/18/24 16:40
IV
PER PROTOCOL GUILLE
Protocol
As Directed
Midodrine 5 mg 06/17/24 14:22 06/18/24 00:59
Midodrine 5 Mg Tablet PO 07/15/24 14:21 5 mg
Q8HPRN PRN Administration
for SBP < 100
Ondansetron HCl 4 mg 06/18/24 17:47 06/18/24 18:07
Ondansetron 4 Mg/2 Ml Vial IV 07/16/24 17:46 4 mg
Q6HPRN PRN Administration
NAUSEA/VOMITING
Oseltamivir Phosphate 30 mg 06/16/24 20:00 06/18/24 20:16
Oseltamivir (Tamiflu) 30 Mg Capsule PO 06/21/24 19:59 30 mg
BID GUILLE Administration
Polyethylene Glycol 17 grams 06/18/24 18:00 06/18/24 18:17
Polyethylene Glycol Powder 17 Grams Packet PO 07/16/24 17:59 17 grams
DAILY GUILLE Administration
Pregabalin 225 mg 06/16/24 22:00 06/18/24 22:05
Pregabalin 75 Mg Capsule PO 07/14/24 21:59 225 mg
HS GUILLE Administration
Pregabalin 150 mg 06/17/24 08:00 06/18/24 09:01
Pregabalin 75 Mg Capsule PO 07/15/24 07:59 150 mg
DAILY GUILLE Administration
Sodium Chloride 0 flush 06/16/24 16:00
Sodium Chloride 0.9% (Flush) Syringe IV 07/14/24 15:59
PER PROTOCOL GUILLE
Sterile Water 10 ml 06/18/24 06:00 06/19/24 06:04
Sterile Water For Injection 10 Ml Vial IV 07/16/24 05:59 10 ml
Q24H GUILLE Administration
Home Medications
�Medication �Instructions �Recorded
acetaminophen 650 mg 1,300 mg PO TIDPRN PRN mild pain 06/16/24
tablet,extended release (Tylenol 8
Hour)
biotin 10,000 mcg chewable tablet 10,000 mcg PO BID Supplement 06/16/24
(Hair, Skin and Nails (biotin))
calcium 600 mg (as 1 tab PO BID Supplement 06/16/24
carbonate)-vitamin D3 10 mcg (400
unit) tablet (Calcium 600 + D(3))
cholecalciferol (vitamin D3) 25 25 mcg PO BID Supplement 06/16/24
mcg (1,000 unit) tablet (Vitamin
D3)
denosumab 60 mg/mL subcutaneous 60 mg SC [id number] Bone 06/16/24
syringe (Prolia)
famotidine 40 mg tablet (Pepcid) 40 mg PO DAILY Gastrointestinal 06/16/24
Issue
ginkgo biloba 120 mg tablet 120 mg PO BID Supplement 06/16/24
glucosamine 375 ya-ncxnnkvbv-txn 1 tab PO DAILY Supplement 06/16/24
no1 500 mg-C 15 mg-daniel 0.5 mg
tablet
(Blkzrifbjwc-Levuhjbivjw-WTG
Complex)
levocetirizine 5 mg tablet (Xyzal) 5 mg PO DAILY Allergies 06/16/24
gkilwqfdahwuq-ML-qacouvwlinnug-guaifen 2 tab PO DAILYPRN PRN congestion 06/16/24
5 mg-10 mg-325 mg-200 mg tablet
(Tylenol Cold and Flu Severe)
pregabalin 75 mg capsule (Lyrica) 150 mg PO DAILY Spinal stenosis 06/16/24
pregabalin 75 mg capsule (Lyrica) 225 mg PO HS Spinal stenosis 06/16/24
topiramate 100 mg tablet 100 mg PO HS Spinal stenosis 06/16/24
topiramate 100 mg tablet 112.5 mg PO DAILY Spinal stenosis 06/16/24
Vital Signs and Labs
-
Vital Signs and Labs:
Vital Signs
Temp Pulse Resp BP Pulse Ox
37.2 C 72 20 108/54 96
06/19/24 07:18 06/19/24 07:18 06/19/24 07:18 06/19/24 07:18 06/19/24 07:18
Lab Results
06/19/24 07:36
06/19/24 07:36
Sodium 134 mmol/L (135-145) L 06/19/24 07:36
Potassium 3.9 mmol/L (3.5-5.1) 06/19/24 07:36
BUN 20 mg/dl (7-17) H 06/19/24 07:36
Glucose 100 mg/dl (70-99) H 06/19/24 07:36
Calcium 8.4 mg/dl (8.4-10.2) 06/19/24 07:36
Cva-T-Dyhynvyviug Pept 966 pg/ml 06/18/24 04:27
Medications
-
Medications:
Generic Name Dose Route Start Last Admin
Trade Name Freq PRN Reason Stop Dose Admin
Acetaminophen 650 mg 06/17/24 13:52 06/18/24 16:07
Acetaminophen 325 Mg Tablet PO 07/14/24 19:48 650 mg
Q6HPRN PRN Administration
Mild pain/Temp>100.4F
Calcium/Vitamin D 500 mg 06/16/24 20:00 06/19/24 08:19
Calcium Carbonate 500 Mg/Vitamin D 5 Mcg (200 Units) Tablet PO 07/14/24 19:59 500 mg
BID GUILLE Administration
Ceftriaxone Sodium 1,000 mg 06/18/24 06:00 06/19/24 06:05
Ceftriaxone 1000 Mg / 10 Ml Vial IV 1,000 mg
Q24H GUILLE Administration
Cetirizine HCl 5 mg 06/17/24 08:00 06/19/24 08:19
Cetirizine Hcl 10 Mg Tablet PO 07/15/24 07:59 5 mg
DAILY GIULLE Administration
Cholecalciferol 25 mcg 06/16/24 20:00 06/19/24 08:19
Cholecalciferol (Vitamin D3) 25 Mcg Tablet (1,000 Units) PO 07/14/24 19:59 25 mcg
BID GUILLE Administration
Famotidine 40 mg 06/17/24 08:00 06/19/24 08:20
Famotidine 40 Mg Tablet PO 07/15/24 07:59 40 mg
DAILY GUILLE Administration
Heparin Sodium 5,000 units 06/16/24 20:00 06/19/24 08:21
Heparin 5,000 Units/Ml 1 Ml Vial SC 07/14/24 19:59 5,000 units
Q12 GUILLE Administration
Vancomycin HCl 1 each/ Device 0 mls @ 0 mls/hr 06/18/24 16:40
IV
PER PROTOCOL GUILLE
Protocol
As Directed
Midodrine 5 mg 06/17/24 14:22 06/18/24 00:59
Midodrine 5 Mg Tablet PO 07/15/24 14:21 5 mg
Q8HPRN PRN Administration
for SBP < 100
Ondansetron HCl 4 mg 06/18/24 17:47 06/18/24 18:07
Ondansetron 4 Mg/2 Ml Vial IV 07/16/24 17:46 4 mg
Q6HPRN PRN Administration
NAUSEA/VOMITING
Oseltamivir Phosphate 30 mg 06/16/24 20:00 06/19/24 08:19
Oseltamivir (Tamiflu) 30 Mg Capsule PO 06/21/24 19:59 30 mg
BID GUILLE Administration
Polyethylene Glycol 17 grams 06/18/24 18:00 06/19/24 08:24
Polyethylene Glycol Powder 17 Grams Packet PO 07/16/24 17:59 17 grams
DAILY GUILLE Administration
Pregabalin 225 mg 06/16/24 22:00 06/18/24 22:05
Pregabalin 75 Mg Capsule PO 07/14/24 21:59 225 mg
HS GUILLE Administration
Pregabalin 150 mg 06/17/24 08:00 06/19/24 08:19
Pregabalin 75 Mg Capsule PO 07/15/24 07:59 150 mg
DAILY GUILLE Administration
Sodium Chloride 0 flush 06/16/24 16:00
Sodium Chloride 0.9% (Flush) Syringe IV 07/14/24 15:59
PER PROTOCOL GUILLE
Sterile Water 10 ml 06/18/24 06:00 06/19/24 06:04
Sterile Water For Injection 10 Ml Vial IV 07/16/24 05:59 10 ml
Q24H GUILLE Administration
Home Medications
-
Home Medications
acetaminophen 650 mg tablet,extended release (Tylenol 8 Hour) 1,300 mg PO TIDPRN PRN mild pain 06/16/24
biotin 10,000 mcg chewable tablet (Hair, Skin and Nails (biotin)) 10,000 mcg PO BID Supplement 06/16/24
calcium 600 mg (as carbonate)-vitamin D3 10 mcg (400 unit) tablet (Calcium 600 + D(3)) 1 tab PO BID Supplement 06/16/24
cholecalciferol (vitamin D3) 25 mcg (1,000 unit) tablet (Vitamin D3) 25 mcg PO BID Supplement 06/16/24
denosumab 60 mg/mL subcutaneous syringe (Prolia) 60 mg SC [id number] Bone 06/16/24
famotidine 40 mg tablet (Pepcid) 40 mg PO DAILY Gastrointestinal Issue 06/16/24
ginkgo biloba 120 mg tablet 120 mg PO BID Supplement 06/16/24
glucosamine 375 yi-omegouhzd-xzf no1 500 mg-C 15 mg-daniel 0.5 mg tablet (Muqiohzzmbs-Hrmiduxkaju-LVZ Complex) 1 tab PO DAILY Supplement 06/16/24
levocetirizine 5 mg tablet (Xyzal) 5 mg PO DAILY Allergies 06/16/24
yghbpygchnyto-ZR-uqoqiyvueuxkg-guaifen 5 mg-10 mg-325 mg-200 mg tablet (Tylenol Cold and Flu Severe) 2 tab PO DAILYPRN PRN congestion 06/16/24
pregabalin 75 mg capsule (Lyrica) 150 mg PO DAILY Spinal stenosis 06/16/24
pregabalin 75 mg capsule (Lyrica) 225 mg PO HS Spinal stenosis 06/16/24
topiramate 100 mg tablet 100 mg PO HS Spinal stenosis 06/16/24
topiramate 100 mg tablet 112.5 mg PO DAILY Spinal stenosis 06/16/24
[2024-06-19 07:52] LABS: Hematocrit 32.1 % (37.0-47.0); Hemoglobin 11.2 g/dL (12.0-16.0); Mean Corp Hgb Conc. 34.9 g/dL (33.0-37.0); Mean Corpuscular Hgb 33.8 pg (27.0-31.0); Mean Platelet Volume 11.4 fL (7.4-10.4); Platelet Count 158 10^3/uL (130-400); Red Blood Cell Count 3.31 10^6/uL (4.20-5.40)
[2024-06-19 08:15] LABS: Vancomycin Random 8.6 ug/ml
[2024-06-19] MEDS: TAMIFLU 30 MG PO ×2 (08:19→20:24)
[2024-06-19] MEDS: VITAMIN D3 (cholecalciferol) 25 MCG PO ×2 (08:19→20:23)
[2024-06-19] MEDS: OSCAL 500 + D 500 MG PO ×2 (08:19→20:23)
[2024-06-19] MEDS: LYRICA 150 MG PO (08:19)
[2024-06-19] MEDS: ZYRTEC 5 MG PO (08:19)
[2024-06-19] MEDS: PEPCID 40 MG PO (08:20)
[2024-06-19] MEDS: HEPARIN 5000 UNITS SC ×2 (08:21→20:24)
[2024-06-19] MEDS: MIRALAX 17 GRAMS PO (08:24)
[2024-06-19 08:27] LABS: Blood Urea Nitrogen 20 mg/dl (7-17); Calcium 8.4 mg/dl (8.4-10.2); Carbon Dioxide 19 mmol/L (22-30); Chloride 107 mmol/L (98-107); Estimated Creatinine Clearance 47 ml/min; Glucose 100 mg/dl (70-99); Potassium 3.9 mmol/L (3.5-5.1); Sodium 134 mmol/L (135-145); eGFR > 60.00
--- NOTE | 2024-06-19 10:12 | CON.ID ---
Consultation
-
Date/Time Consultation Requested: 06/18/24 16:35
Date/Time Consultation Performed: 06/19/24 10:15
Requesting Provider: Dr Veliz
Performing Provider: Dr Morales
Reason for Consultation: flu
Chief Complaint / Past History
Chief Complaint
syncope
History of Present Illness
Ms Miller is a 73 year old female with history of spinal stenosis who presented here 06/16 for cough and shortness of breath for 24 hours, headache, myalgias, and syncope while sitting at breakfast then vomiting. No diarrhea, no sick contacts.
Since arrival here patient was initially spiking fevers to a Tmax of 103.0, did develop hypotension early AM on 06/18 that was sustained and started on midodrine - bp now stabilizing, WBC since arrival 5.2 and now normal, hgb 11.2, plt initially 127
now 158, L shift noted on arrival not repeated since, Cr initially 0.8 peaked to 1.3 on 06/18 and today 0.8, na 134, lactic acid 1.5, bnp 966, procalc done while crcl 29 and at that time 16.5, flu A positive, covid ag negative, 06/18 CXR: Focal
parenchymal opacity in the right lower lung, highly suggestive of pneumonia. brain MRI done, not yet read, sputum culture no yet done, currently on vancomycin, ceftriaxone and tamiflu at my recommendation.
Past History
Additional Past Medical History:
osteoporosis
Additional Past Surgical History:
spine surgery with lumbar hardwear placement, foot surgery
Allergy History:
No Known Allergies Allergy (Unverified 06/16/24 14:59)
Medications Reviewed: Yes
Social History
Tobacco: Non-Smoker
Alcohol: None
Drug: None
Family History
Family History: Not Pertinent
Review of Systems
Review of Systems
General: Fever and Chills
All systems: All other systems were reviewed and were negative
Vital Signs
Temp Pulse Resp BP Pulse Ox
98.9 F 72 20 108/54 96
06/19/24 07:18 06/19/24 07:18 06/19/24 07:18 06/19/24 07:18 06/19/24 07:18
Physical Exam
Physical Exam
Constitutional: No Acute Distress and Non-toxic
Cardiovascular: Regular Rate and S1/S2; Negative Murmur or Rub
Pulmonary: Clear and Coarse; Negative Symmetric, Wheezes, Rales or Rhonchi
Gastrointestinal: Soft, Non Tender, Non Distended and Normal Bowel Sounds
Skin: Warm and Dry; Negative Rash or Jaundice
Lab / Diagnostic Study Results
06/19/24 07:36
06/19/24 07:36
Abs Immat Gran (auto) 0.0 10^3/uL (0-0.05) 06/16/24 11:10
Absolute Neuts (auto) 7.0 10^3/uL (1.4-6.5) H 06/16/24 11:10
Absolute Lymphs (auto) 0.5 10^3/uL (1.2-3.4) L 06/16/24 11:10
Absolute Monos (auto) 0.7 10^3/uL (0.1-0.6) H 06/16/24 11:10
Absolute Basos (auto) 0.0 10^3/uL (0-0.2) 06/16/24 11:10
Total Counted 100 06/17/24 07:18
Immature Gran % 0.5 % (0-0.5) 06/16/24 11:10
Neutrophils % 84.3 % (42.2-75.2) H 06/16/24 11:10
Lymphocytes % 6.1 % (20.5-51.1) L 06/16/24 11:10
Monocytes % 8.6 % (1.7-9.3) 06/16/24 11:10
Eosinophils % 0.1 % (0-6) 06/16/24 11:10
Basophils % 0.4 % (0-2) 06/16/24 11:10
Abs Neuts (Manual) 4.6 10^3/uL (1.4-6.5) 06/17/24 07:18
Segmented Neutrophils 73 % (42-75) 06/17/24 07:18
Band Neutrophils 16 % (0-3) H 06/17/24 07:18
Lymphocytes (Manual) 7 % (20-51) L 06/17/24 07:18
Lactic Acid 1.5 mmol/L (0.7-2.0) 06/18/24 04:26
Procalcitonin 16.53 ng/ml (0.0-0.25) H* 06/18/24 04:24
Microbiology Results
Micro:
06/19/24 04:04 Nasal Screen MRSA (PCR) - Final
Nose MRSA not detected - performed by PCR methodology.
06/16/24 09:30 Influenza Types A & B (MICHELET) - Final
Nasal Swab Influenza A Positive, NAAT
Assessment / Plan
Influenza A
Possible Superimposed Bacterial Pneumonia
Leukopenia resolved
TOMAS resolved
Hypoxemic resp failure
- sputum culture if able
- cannot reliably interpret elevated procalcitonin when CrCl at time of obtaining was 29
- note new infiltrate on CXR
- MRSA PCR negative
- obtain sputum culture if able
- continue vancomycin for now, attempt to obtain sputum culture
- continue ceftriaxone
- continue tamiflu
- follow fever curve, O2 requirements, etc
--- NOTE | 2024-06-19 10:39 | PHA.VAN.FU ---
Vancomycin Assessment / Plan
- Assessment
Renal Function: SCR Decreasing (1.3-> 0.8 (TOMAS resolved))
WBC's are: WNL
In the past 24 hrs, patient has been: Febrile (102.3 - on 06/18 @15:40)
Concomitant Antimicrobials: ceftriaxone, PO doxy, tamiflu
- Assessment - Therapeutic Drug Monitoring
Random Level: 8.6 - after 1500 mg LD yesterday
- Dosing Plan
Adjust Regimen to: vancomycin 750 mg q24 - to start now
New Regimen Predicts: AUC (485), Peak (31.8), Trough (11.7)
- Monitoring Plan
No level(s) ordered at this time: consider levels when pt reaches steady state
- Follow Up
Pharmacy will continue to follow.
Vancomycin Follow UP
- -
Patient Age: 73
Patient Sex: Female
Vancomycin Day #: 2
Indication: Pulmonary/Respiratory
Requesting Provider: Dr. Veliz
Pertinent Antimicrobial Allergies:
No known allergies
Height / Weight:
Height 5 ft 1 in
Actual Weight 51.846 kg
- Vital Signs / Lab Results
Temp Pulse Resp BP Pulse Ox
98.9 F 72 20 108/54 96
06/19/24 07:18 06/19/24 07:18 06/19/24 07:18 06/19/24 07:18 06/19/24 07:18
Lab Results - Hematology
06/16/24 06/16/24 06/17/24
10:42 11:10 07:18
WBC Cancelled 8.2 5.2
Band Neutrophils 16 H
06/18/24 06/19/24
04:26 07:36
WBC 3.5 L 5.0
Band Neutrophils
Lab Results - Chemistry
06/17/24 06/18/24 06/19/24
07:18 04:24 07:36
BUN 12 19 H 20 H
Creatinine 0.7 1.3 H 0.8
Estimated Creat Clear 53 29 47
Albumin 3.1 L
06/18/24
04:26
Lactic Acid 1.5
Microbiology Results
06/19/24 04:04 Nasal Screen MRSA (PCR) - Final
Nose MRSA not detected - performed by PCR methodology.
Therapeutic Drug Monitoring
Random Vancomycin 8.6 ug/ml 06/19/24 07:36
[2024-06-19] MEDS: SENNA SYRUP 8.8 MG PO ×2 (10:43→20:24)
[2024-06-19 11:31] VITALS: BP 90/58
[2024-06-19] MEDS: VANCOCIN 150 IV (11:38)
--- NOTE | 2024-06-19 13:11 | W.PN.HOSP.TC ---
Today's Communication/Plan
-
Sputum culture if able to provide
Continue vancomycin/Rocephin
Maintain on Tamiflu
Follow-up MRI brain report
Wean off oxygen as possible
Encourage oral intake
Assessment / Plan
Assessment / Plan
1. Influenza A infection
Acute hypoxic respite failure
-Chest x-ray did not show any over infiltrate
-Symptom onset less than 48 hours at admit, started on Tamiflu
-Patient has significant weakness/lethargy
-Oxygenation requirement stable. Overall patient feeling better today.
2. Superimposed bacterial pneumonia
-Elevated procalcitonin ~ 16.5
-Discussed with ID regimen adjusted to vancomycin/Rocephin
-ID help appreciated
3. Hyponatremia
-mild, monitor
4. TOMAS - resolved
-Patient was getting IV fluid for last 36 hours, will hold further IV fluid as patient has a lot of secretions
-Suspecting prerenal from hypotension
-Avoid nephrotoxic medication
-Further testing if renal function does not improve in next 24 to 48 hours
5. Syncope
-Patient already having some pulmonary congestion
-Borderline/soft blood pressure, will add midodrine for pressure support
6. Diplopia
Mild toxic metabolic encephalopathy
-MRI brain without any abnormality
-Encephalopathy likely from viral/bacterial pneumonia
-Neurology help appreciated
Osteoporosis
Spinal stenosis status post surgery
Full code
DVT prophylaxis�heparin
Discussed with Patient Daughter at Bedside.
Anticipated Discharge: 24 - 48 hours
Subjective/Interval History
-
Date of Service: June 19, 2024
clinically better
o2 is better now
Objective Data
-
Labs:
Laboratory Results
06/19/24
07:36
WBC 5.0
Hgb 11.2 L
Hct 32.1 L
Plt Count 158
Sodium 134 L
Potassium 3.9
Chloride 107
Carbon Dioxide 19 L
BUN 20 H
Creatinine 0.8
Glucose 100 H
Calcium 8.4
Vital Signs:
Vital Signs
Temp Pulse Resp BP Pulse Ox
100.1 F 75 20 90/58 98
06/19/24 11:31 06/19/24 11:31 06/19/24 11:31 06/19/24 11:31 06/19/24 11:31
I&O
06/18/24 06/19/24 06/20/24
06:59 06:59 06:59
Intake Total 680 / 680 700 / 700 240 / 240
Output Total 850 / 850 1800 / 1800
Balance 680 / 680 -150 / -150 -1560 / -1560
Review of Systems
-
Respiratory: Reports No Symptoms
Cardiac: Reports No Symptoms
Abdomen/GI: Reports No Symptoms
Physical Exam
-
General: No Apparent Distress and Comfortable
HEENT: Negative Oxygen
Cardiac: Regular Rhythm and S1/S2; Negative Murmur or Rub
GI: Soft, Nontender and Nondistended
Musculoskeletal: No Edema
Neuro: Awake, Alert, Oriented, No Motor Deficits and Nonfocal/Grossly Intact
Psych: Calm
--- NOTE | 2024-06-19 14:21 | PTCARENOTE ---
patient is sitting up in chair, NC 3L O2 sat 97%, oxygen weaned down to 2L, patient instructed to notify nurse if having any SOB or changes. Will continue to monitor.
[2024-06-19 15:36] VITALS: BP 94/60
[2024-06-19] MEDS: ZOFRAN 4 MG IV (18:06)
--- NOTE | 2024-06-19 18:19 | PTCARENOTE ---
patient c/o SOB, while resting in bed. Patient on 2LNC O2 sat 97%, NC increased to 3L O2 sat 99% Patient states feels less SOB. will continue to monitor.
[2024-06-19 19:58] VITALS: BP 113/65
[2024-06-19] MEDS: LYRICA 225 MG PO (21:46)
[2024-06-19 23:15] VITALS: BP 114/76
[2024-06-20] VITALS (7 sets, daily range): BP systolic 103–131; BP diastolic 56–72; PULSE 60; O2SAT 97
[2024-06-20] MEDS: ROCEPHIN 1000 MG IV (05:57)
[2024-06-20] MEDS: STERILE WATER FOR INJECTION 10 ML IV (05:57)
[2024-06-20] MEDS: VANCOCIN 150 IV (06:23)
[2024-06-20 06:31] LABS: Hematocrit 32.8 % (37.0-47.0); Hemoglobin 11.4 g/dL (12.0-16.0); Mean Corp Hgb Conc. 34.8 g/dL (33.0-37.0); Mean Corpuscular Volume 97.9 fL (81.0-99.0); Mean Platelet Volume 11.5 fL (7.4-10.4); Platelet Count 172 10^3/uL (130-400); Red Blood Cell Count 3.35 10^6/uL (4.20-5.40); White Blood Cell Count 4.8 10^3/uL (4.8-10.8)
[2024-06-20 06:57] LABS: Blood Urea Nitrogen 17 mg/dl (7-17); Calcium 8.3 mg/dl (8.4-10.2); Carbon Dioxide 22 mmol/L (22-30); Chloride 108 mmol/L (98-107); Estimated Creatinine Clearance 53 ml/min; Glucose 92 mg/dl (70-99); Sodium 138 mmol/L (135-145); eGFR > 60.00
[2024-06-20] MEDS: OSCAL 500 + D 500 MG PO ×2 (08:32→20:48)
[2024-06-20] MEDS: MIRALAX 17 GRAMS PO (08:32)
[2024-06-20] MEDS: HEPARIN 5000 UNITS SC ×2 (08:32→20:47)
[2024-06-20] MEDS: SENNA SYRUP 8.8 MG PO ×2 (08:32→20:47)
[2024-06-20] MEDS: LYRICA 150 MG PO (08:33)
[2024-06-20] MEDS: VITAMIN D3 (cholecalciferol) 25 MCG PO ×2 (08:33→20:48)
[2024-06-20] MEDS: PEPCID 40 MG PO (08:33)
[2024-06-20] MEDS: TAMIFLU 30 MG PO ×2 (08:34→20:48)
[2024-06-20] MEDS: ZYRTEC 5 MG PO (08:34)
--- NOTE | 2024-06-20 13:11 | W.PN.HOSP.TC ---
Today's Communication/Plan
-
Assessment / Plan
Assessment / Plan
NAD
Scleral Anicteric
MMM
No JVD
CTABL
RRR, S1/S2
Soft, NT, ND, BS+
Warm, Dry
AAOx3
Calm
Acute hypoxemic respiratory failure, documented SpO2 of 85% on EMR secondary to influenza A and superimposed bacterial pneumonia
-Complete 5-day course of Tamiflu
-Continue IV antibiotics to complete full 7 to 10-day course
-Wean oxygen as tolerated
-Continue Acapella and incentive spirometer use
-Sputum culture no growth to date
Hyponatremia - resolved
TOMAS - resolved
Syncope
-Patient already having some pulmonary congestion
-Borderline/soft blood pressure, will add midodrine for pressure support, as needed has not required
Diplopia
Mild toxic metabolic encephalopathy
-MRI brain without any abnormality
-Encephalopathy likely from viral/bacterial pneumonia
-Neurology help appreciated
Osteoporosis
Spinal stenosis status post surgery
Full code
DVT prophylaxis�heparin
Discussed with Patient Daughter at Bedside.
Anticipated Discharge: 24 - 48 hours
Subjective/Interval History
-
Date of Service: June 20, 2024
Seen and examined. No new complaints. No acute overnight events.
Noted some blood clots while blowing her nose
With a cuff of oxygen assist her SpO2 developed conversational dyspnea however SpO2 remained between 95 and 97% on room air
Objective Data
-
Labs:
Laboratory Results
06/20/24
06:22
WBC 4.8
Hgb 11.4 L
Hct 32.8 L
Plt Count 172
Sodium 138
Potassium 4.0
Chloride 108 H
Carbon Dioxide 22
BUN 17
Creatinine 0.7
Glucose 92
Calcium 8.3 L
Vital Signs:
Vital Signs
Temp Pulse Resp BP Pulse Ox
97.8 F 59 18 103/60 97
06/20/24 11:08 06/20/24 11:08 06/20/24 11:08 06/20/24 11:08 06/20/24 11:08
I&O
06/19/24 06/20/24 06/21/24
06:59 06:59 06:59
Intake Total 700 / 700 1200 / 1200
Output Total 850 / 850 1800 / 1800
Balance -150 / -150 -600 / -600
--- NOTE | 2024-06-20 14:06 | W.PN.ID1 ---
Date of Service
Date of Service: June 20, 2024
Today's Communication
- stopped vancomycin
- start cefdinir, stop ceftriaxone - for 7 day total course 06/18-06/24
- continue tamiflu x5 days (tomorrow will be final day)
- stable for dc from ID perspective
Assessment / Plan
Influenza A
Possible Superimposed Bacterial Pneumonia
Leukopenia resolved
TOMAS resolved
Hypoxemic resp failure
- sputum culture usual resp ashly
- cannot reliably interpret elevated procalcitonin when CrCl at time of obtaining was 29
- stopped vancomycin
- start cefdinir, stop ceftriaxone - for 7 day total course 06/18-06/24
- continue tamiflu x5 days (tomorrow will be final day)
- stable for dc from ID perspective
Chief Complaint
-: Pneumonia and Other (Influenza)
Subjective / Review of Systems
afebrile
bp stable
on 2L O2 with O2 sat 97%
resp culture usual resp ashly
Vital Signs / Physical Exam
Vital Signs
Vital Signs
Temp Pulse Resp BP Pulse Ox
97.8 F 59 18 103/60 97
06/20/24 11:08 06/20/24 11:08 06/20/24 11:08 06/20/24 11:08 06/20/24 11:08
Physical Exam
Constitutional: No Acute Distress and Non-toxic
Cardiovascular: Regular Rate and S1/S2; Negative Murmur or Rub
Pulmonary: Clear and Symmetric; Negative Wheezes or Rales
Gastrointestinal: Soft, Non Tender, Non Distended and Normal Bowel Sounds
Skin: Warm and Dry; Negative Rash or Jaundice
Objective Data
Lab Data
Lab Results
06/20/24 06:22
06/20/24 06:22
Estimated Creat Clear 53 ml/min 06/20/24 06:22
Lactic Acid 1.5 mmol/L (0.7-2.0) 06/18/24 04:26
Total Bilirubin 0.5 mg/dl (0.2-1.3) 06/17/24 07:18
AST 26 U/L (14-36) 06/17/24 07:18
ALT 15 U/L (0-35) 06/17/24 07:18
Alkaline Phosphatase 47 U/L (38-126) 06/17/24 07:18
Most recent labs reviewed.
Micro Results:
06/19/24 11:50 Respiratory Culture - Preliminary
Sputum Usual Respiratory Ashly
Gram Stain - Preliminary
06/19/24 04:04 Nasal Screen MRSA (PCR) - Final
Nose MRSA not detected - performed by PCR methodology.
06/16/24 09:30 Influenza Types A & B (MICHELET) - Final
Nasal Swab Influenza A Positive, NAAT
--- NOTE | 2024-06-20 16:58 | CM ---
CM met with Leonor and her today to discuss discharge plans. Leonor is typically very active, but currently feeling weak and short of breath. She is on O2 now, but not at home [employer].
Pt plans to return home at discharge. VN offered and she would be agreeable to same.
Watch for home O2 needs.
[2024-06-20] MEDS: LYRICA 225 MG PO (22:26)
[2024-06-20] MEDS: TYLENOL 650 MG PO (22:26)
[2024-06-21 03:36] VITALS: BP 121/69
[2024-06-21 07:45] VITALS: BP 112/53
[2024-06-21] MEDS: MIRALAX 17 GRAMS PO (08:13)
[2024-06-21] MEDS: SENNA SYRUP 8.8 MG PO ×2 (08:14→20:55)
[2024-06-21] MEDS: TAMIFLU 30 MG PO (08:14)
[2024-06-21] MEDS: OMNICEF 300 MG PO ×2 (08:15→20:46)
[2024-06-21] MEDS: ZYRTEC 5 MG PO (08:15)
[2024-06-21] MEDS: OSCAL 500 + D 500 MG PO ×2 (08:16→20:47)
[2024-06-21] MEDS: HEPARIN 5000 UNITS SC ×2 (08:16→20:47)
[2024-06-21] MEDS: VITAMIN D3 (cholecalciferol) 25 MCG PO ×2 (08:16→20:46)
[2024-06-21] MEDS: PEPCID 40 MG PO (08:16)
[2024-06-21] MEDS: LYRICA 150 MG PO (08:16)
--- NOTE | 2024-06-21 10:41 | W.PN.ID1 ---
Date of Service
Date of Service: June 21, 2024
Today's Communication
- c/w cefdinir for 7 day total course 06/18-06/24
- continue tamiflu x5 days (final day)
- stable for dc from ID perspective
Assessment / Plan
Influenza A
Possible Superimposed Bacterial Pneumonia
Leukopenia resolved
TOMAS resolved
Hypoxemic resp failure
- c/w cefdinir for 7 day total course 06/18-06/24
- continue tamiflu x5 days (final day)
- stable for dc from ID perspective
Chief Complaint
-: Pneumonia and Other (Influenza)
Subjective / Review of Systems
afebrile
bp stable
saturating 95% on 1L
no events overnight
Vital Signs / Physical Exam
Vital Signs
Vital Signs
Temp Pulse Resp BP Pulse Ox
98.1 F 48 18 112/53 95
06/21/24 07:45 06/21/24 07:45 06/21/24 07:45 06/21/24 07:45 06/21/24 07:45
Physical Exam
Constitutional: No Acute Distress
Cardiovascular: Regular Rate and S1/S2; Negative Murmur or Rub
Pulmonary: Clear and Symmetric; Negative Wheezes or Rales
Gastrointestinal: Soft, Non Tender, Non Distended and Normal Bowel Sounds
Skin: Warm and Dry; Negative Rash or Jaundice
Objective Data
Lab Data
Lab Results
06/20/24 06:22
06/20/24 06:22
Estimated Creat Clear 53 ml/min 06/20/24 06:22
Lactic Acid 1.5 mmol/L (0.7-2.0) 06/18/24 04:26
Total Bilirubin 0.5 mg/dl (0.2-1.3) 06/17/24 07:18
AST 26 U/L (14-36) 06/17/24 07:18
ALT 15 U/L (0-35) 06/17/24 07:18
Alkaline Phosphatase 47 U/L (38-126) 06/17/24 07:18
Most recent labs reviewed.
Micro Results:
06/19/24 11:50 Respiratory Culture - Final
Sputum Usual Respiratory Eleni
Gram Stain - Final
06/19/24 04:04 Nasal Screen MRSA (PCR) - Final
Nose MRSA not detected - performed by PCR methodology.
06/16/24 09:30 Influenza Types A & B (MICHELET) - Final
Nasal Swab Influenza A Positive, NAAT
[2024-06-21] MEDS: TYLENOL 650 MG PO ×3 (10:43→23:01)
[2024-06-21 11:52] VITALS: BP 115/71
--- NOTE | 2024-06-21 12:48 | CM ---
CM reviewed chart, patient seen bedside with daughter, discussed PT recommendations of VN. Patient agreeable, requesting referral to VN, TT to Liaison with update. Patient off O2. CM will continue to follow for all discharge planning needs.
Plan; home with [facility] pending acceptance.
--- NOTE | 2024-06-21 13:13 | VNURNOTE ---
Home Health Liaison spoke with patient to discuss [facility] nurse/therapy, visits, schedule and homebound status. Patient is agreeable and understands that visits at home will be 2-3 x per week to assess and teach medical management. Patient is aware
that [facility] will contact them for start of care in 1-2 days after discharge from . [facility] referral completed in [facility].
--- NOTE | 2024-06-21 13:33 | W.PN.HOSP.TC ---
Today's Communication/Plan
-
Discharge home
More than 30 minutes spent in discharge including
Final examination of the patient
Summarizing hospital stay
Instructions for continuing care to all relevant caregivers
Preparation of discharge records, prescriptions, and referral forms
Total time spent (in minutes): 33mins
Assessment / Plan
Assessment / Plan
NAD
Scleral Anicteric
MMM
No JVD
CTABL
RRR, S1/S2
Soft, NT, ND, BS+
Warm, Dry
AAOx3
Calm
Acute hypoxemic respiratory failure, documented SpO2 of 85% on EMR secondary to influenza A and superimposed bacterial pneumonia
-Complete 5-day course of Tamiflu
-Transition from IV antibiotics to cefdinir until 06/24
-Respiratory therapy to assess home O2 needs
-Continue Acapella and incentive spirometer use
-Sputum culture no growth to date
Hyponatremia - resolved
TOMAS - resolved
Syncope
-Patient already having some pulmonary congestion
-Borderline/soft blood pressure, will add midodrine for pressure support, as needed has not required
Diplopia
Mild toxic metabolic encephalopathy
-MRI brain without any abnormality
-Encephalopathy likely from viral/bacterial pneumonia
-Neurology help appreciated
Osteoporosis
Spinal stenosis status post surgery
Full code
DVT prophylaxis�heparin
Anticipated Discharge: Today
Subjective/Interval History
-
Date of Service: June 21, 2024
Seen and examined. daughter at bedside. No new complaints. No acute overnight events.
Has rib pain that is right-sided. Suspect related to coughing/musculoskeletal in nature. Worse with taking a deep breath
Objective Data
-
Vital Signs:
Vital Signs
Temp Pulse Resp BP Pulse Ox
97.4 F 55 18 115/71 96
06/21/24 11:52 06/21/24 11:52 06/21/24 11:52 06/21/24 11:52 06/21/24 11:52
I&O
06/20/24 06/21/24 06/22/24
06:59 06:59 06:59
Intake Total 1200 / 1200 960 / 960
Output Total 1800 / 1800
Balance -600 / -600 960 / 960
--- NOTE | 2024-06-21 13:35 | W.DCSUMMARY ---
Discharge Summary
Discharge Data
Date of Admission: 06/20/24
Date of Discharge: 06/21/24
-
Pending Results: No
Hospital Course
73 female history of osteoporosis spinal surgery and foot surgery
Presented with cough shortness of breath and syncope while at the breakfast table. Noted to have low oxygen started on supplemental oxygen. Chest x-ray without evidence of pneumonia. Was found to have influenza A. Started on Tamiflu. Additional
laboratory testing suggestive of superimposed bacterial pneumonia as procalcitonin was high therefore initiated on IV antibiotics. Completed Tamiflu on 06/21/2024. Evaluated by infectious diseases recommended to continue antibiotics until June
2024 with cefdinir. In terms of the syncope, evaluated by neurology, recommened to aviod use of topomax and/or pregabalin MRI was completed without evidence of acute intracranial abnormalities. Additionally demonstrated paranasal sinus disease
as described including air-fluid levels within the left sphenoid sinus and bilateral maxillary sinus could be suggestive of acute sinusitis. Neurology recommended outpatient ENT evaluation for sinusitis. Should be noted that Rocephin and
doxycycline would cover this as well. Additionally, should be noted found to have acute kidney injury with a creatinine of 1.3 however improved with IV hydration. Will need outpatient repeat chest x-ray with follow-up with PCP. As needed
albuterol inhaler.
Was evaluated by respiratory therapy for home O2 assessment. With ambulation of 150 feet without evidence of hypoxemia as SpO2 remained greater than 94% per documentation on room air. 96% O2 saturation at rest on room air.
Return precautions provided
MRI Brain
IMPRESSION: O thin section imaging, normal appearance of the IACs with no evidence for cerebellopontine angle mass.
No evidence of acute intracranial abnormality.
Paranasal sinus disease as described, including air-fluid levels within the left sphenoid sinus and bilateral maxillary sinuses. Air-fluid levels are suggestive of acute sinusitis and please correlate clinically.
CXR
IMPRESSION:
Focal parenchymal opacity in the right lower lung, highly suggestive of pneumonia.
Small focus of parenchymal opacity in the medial left lower lung, most likely atelectasis, although a small focus of pneumonia is also possible.
No evidence for associated pleural effusion bilaterally.
Repeat chest xray in 6-8weeks
Discharge Plan
-
Patient Disposition: Home with Home Care
Discharge Diagnosis/Procedures: Acute hypoxemic respiratory failure secondary to influenza A with superimposed bacterial pneumonia
Condition: Good
Diet: As tolerated
Activity: As tolerated
Activity Restrictions/Additional Instructions:
Presented with cough shortness of breath and syncope while at the breakfast table. Noted to have low oxygen started on supplemental oxygen. Chest x-ray without evidence of pneumonia. Was found to have influenza A. Started on Tamiflu. Additional
laboratory testing suggestive of superimposed bacterial pneumonia as procalcitonin was high therefore initiated on IV antibiotics. Completed Tamiflu on 06/21/2024. Evaluated by infectious diseases recommended to continue antibiotics until June
2024 with cefdinir. In terms of the syncope, evaluated by neurology, recommened to aviod use of topomax and/or pregabalin MRI was completed without evidence of acute intracranial abnormalities. Additionally demonstrated paranasal sinus disease
as described including air-fluid levels within the left sphenoid sinus and bilateral maxillary sinus could be suggestive of acute sinusitis. Neurology recommended outpatient ENT evaluation for sinusitis. Should be noted that Rocephin and
doxycycline would cover this as well. Additionally, should be noted found to have acute kidney injury with a creatinine of 1.3 however improved with IV hydration. Will need outpatient repeat chest x-ray with follow-up with PCP. As needed
albuterol inhaler.
Was evaluated by respiratory therapy for home O2 assessment. With ambulation of 150 feet without evidence of hypoxemia as SpO2 remained greater than 94% per documentation on room air. 96% O2 saturation at rest on room air.
Return precautions provided
MRI Brain
IMPRESSION: O thin section imaging, normal appearance of the IACs with no evidence for cerebellopontine angle mass.
No evidence of acute intracranial abnormality.
Paranasal sinus disease as described, including air-fluid levels within the left sphenoid sinus and bilateral maxillary sinuses. Air-fluid levels are suggestive of acute sinusitis and please correlate clinically.
CXR
IMPRESSION:
Focal parenchymal opacity in the right lower lung, highly suggestive of pneumonia.
Small focus of parenchymal opacity in the medial left lower lung, most likely atelectasis, although a small focus of pneumonia is also possible.
No evidence for associated pleural effusion bilaterally.
Repeat chest xray in 6-8weeks
Referrals:
Denny Kang DO [Family Provider] -
Prescriptions:
New
cefdinir 300 mg Capsule
300 mg PO Q12 3 Days Qty: 6 0RF
albuterol sulfate 90 mcg/actuation HFA aerosol inhaler
2 puff inhalation Q6H PRN (Reason: shortness of breath or wheezing) Qty: 6.7 0RF
Robitussin Cough-Chest Roly DM 10-200 mg capsule
2 tab-cap PO Q6H PRN (Reason: Cough) Qty: 7 0RF
Continued
famotidine [Pepcid] 40 mg Tablet
40 mg PO DAILY
acetaminophen [Tylenol 8 Hour] 650 mg Tablet Extended Release
1,300 mg PO TIDPRN PRN (Reason: mild pain)
ginkgo biloba 120 mg Tablet
120 mg PO BID
pregabalin [Lyrica] 75 mg Capsule
225 mg PO HS
pregabalin [Lyrica] 75 mg Capsule
150 mg PO DAILY
Tylenol Cold and Flu Severe 6-44-125-200 mg Tablet
2 tab PO DAILYPRN PRN (Reason: congestion)
cholecalciferol (vitamin D3) [Vitamin D3] 25 mcg (1,000 unit) Tablet
25 mcg PO BID
calcium carbonate-vitamin D3 [Calcium 600 + D(3)] 600 mg-10 mcg (400 unit) Tablet
1 tab PO BID
levocetirizine [Xyzal] 5 mg Tablet
5 mg PO DAILY
Ebbsykvlqds-Apsrb-BXM Complex 885-704-56-0.5 mg Tablet
1 tab PO DAILY
Prolia 60 mg/mL Syringe
60 mg SC [id number]
Hair, Skin and Nails (biotin) 10,000 mcg Tablet,Chewable
10,000 mcg PO BID
Held
topiramate 100 mg Tablet
112.5 mg PO DAILY
Hold Instructions: Resume on 06/28/24. Until seen by outpatient provider
topiramate 100 mg Tablet
100 mg PO HS
Hold Instructions: Resume on 06/28/24. Until seen by outpatient provider
Discharge Date and Time
Print Language: KINYARWANDA
[2024-06-21 15:54] VITALS: BP 115/67
[2024-06-21] MEDS: SENNA SYRUP PO (20:46)
[2024-06-21] MEDS: LYRICA 225 MG PO (22:21)
[2024-06-21 23:23] VITALS: BP 115/69
[2024-06-22 07:27] VITALS: BP 120/69
[2024-06-22] MEDS: PEPCID 40 MG PO (09:03)
[2024-06-22] MEDS: OSCAL 500 + D 500 MG PO (09:03)
[2024-06-22] MEDS: SENNA SYRUP 8.8 MG PO (09:03)
[2024-06-22] MEDS: LYRICA 150 MG PO (09:03)
[2024-06-22] MEDS: MIRALAX 17 GRAMS PO (09:03)
[2024-06-22] MEDS: OMNICEF 300 MG PO (09:04)
[2024-06-22] MEDS: ZYRTEC 5 MG PO (09:04)
[2024-06-22] MEDS: HEPARIN 5000 UNITS SC (09:05)
[2024-06-22] MEDS: VITAMIN D3 (cholecalciferol) 25 MCG PO (09:05)
[2024-06-22] MEDS: TYLENOL 650 MG PO (09:27)
--- NOTE | 2024-06-22 10:46 | CM ---
Chart reviewed and recommendation is for home with home care, per updated physical therapy notes, patient no longer requires oxygen, plan is to home with [facility].
Plan; Home with [facility].
--- NOTE | 2024-06-22 13:31 | W.PN.ID1 ---
Date of Service
Date of Service: June 22, 2024
Today's Communication
- c/w cefdinir for 7 day total course 06/18-06/24
Assessment / Plan
Influenza A
Possible Superimposed Bacterial Pneumonia
Leukopenia resolved
TOMAS resolved
Hypoxemic resp failure
- c/w cefdinir for 7 day total course 06/18-06/24
- completed tamiflu x5 days
- stable for dc from ID perspective
Chief Complaint
-: Pneumonia and Other (Influenza)
Subjective / Review of Systems
afebrile
bp stable
on room air
no events overnight
Vital Signs / Physical Exam
Vital Signs
Vital Signs
Temp Pulse Resp BP Pulse Ox
98.4 F 59 18 120/69 95
06/22/24 07:27 06/22/24 07:27 06/22/24 07:27 06/22/24 07:27 06/22/24 08:00
Physical Exam
Constitutional: No Acute Distress and Other (walking in the [place] with PT)
Cardiovascular: Regular Rate
Pulmonary: Symmetric
Gastrointestinal: Non Distended
Neurological: Awake
Objective Data
Lab Data
Lab Results
06/20/24 06:22
06/20/24 06:22
Estimated Creat Clear 53 ml/min 06/20/24 06:22
Lactic Acid 1.5 mmol/L (0.7-2.0) 06/18/24 04:26
Total Bilirubin 0.5 mg/dl (0.2-1.3) 06/17/24 07:18
AST 26 U/L (14-36) 06/17/24 07:18
ALT 15 U/L (0-35) 06/17/24 07:18
Alkaline Phosphatase 47 U/L (38-126) 06/17/24 07:18
Most recent labs reviewed.
Micro Results:
06/19/24 11:50 Respiratory Culture - Final
Sputum Usual Respiratory Eleni
Gram Stain - Final
06/19/24 04:04 Nasal Screen MRSA (PCR) - Final
Nose MRSA not detected - performed by PCR methodology.
06/16/24 09:30 Influenza Types A & B (MICHELET) - Final
Nasal Swab Influenza A Positive, NAAT
[2024-06-22] MEDS: TEGRETOL CHEWABLE 100 MG PO (14:11)
[2024-06-22 14:15] VITALS: BP 122/76; PULSE 60; O2SAT 97
--- NOTE | 2024-06-22 14:16 | W.PN.NEURO.1 ---
Today's Communication / Plan
-
.
Subjective/Objective
Subjective Data
Neurology follow-up note.
Ms. Miller reports 3 days of intermittent sharp moderate to severe left upper neck pain radiating to posterior auricular area. The pain is worse with neck movements and relieved with medications. 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
pregabalin for.
No reports of dysphagia, radicular neck pain or sensory symptoms in the hand.
Brain MRI wo [place]-no acute infarcts, left sphenoid sinusitis, mild atrophy.
Repeat brain MRI with [place] today showed no additional abnormalities.
PMH: scoliosis, osteoporosis, IGT, vitamin D deficiency, GERD
PSH: T10-S1 fusion, left ankle surgery, hysterectomy, left wrist surgery
SH: Originally from 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
FH: Mother�dementia, parkinsonism (in her early 80s), father�EtOH addiction.
All:NKDA
ROS: Constitutional: Positive for fatigue
HENT: Positive for hearing impairment, transient vertigo, dysphonia
Eyes: Negative. Negative for photophobia, pain and visual disturbance.
Respiratory: Positive for cough
Cardiovascular: Negative for chest pain, palpitations and leg swelling.
Gastrointestinal: Negative for abdominal pain and vomiting.
Endocrine: Negative. Negative for cold intolerance.
Genitourinary: Positive for urinary retention
Musculoskeletal: Positive for arthralgias
Skin: Negative for rash.
Allergic/Immunologic: Negative. Negative for immunocompromised state.
Neurological: Positive for headache, transient vertigo, confusion
Psychiatric/Behavioral: Negative for behavioral problems, confusion and hallucinations.
General: Slim. In no acute distress.
Cardio: Regular rate and rhythm without murmur. Extremities are without cyanosis or edema.
Neuro:
Mental Status: Alert, oriented to person, place, and date. Able to do serial sevens. Mild decrease in processing time. Good fund of knowledge. Follows complex requests across the midline. Comprehension, naming, and repetition intact.
Cranial Nerves: Pupils are equally round and reactive to light. EOMs full. Visual perez full to confrontation. No ptosis. No nystagmus. V1-V3 intact to light touch and pinprick bilaterally, symmetric. Face symmetric. Poor hearing AU. The
palate elevated well. SCMs and traps 5/5. Tongue midline. Moderate dysphonia, hypophonia
Motor: Normal bulk and tone with augmentation. No pronator or arm drift. Strength 5/5 throughout. No clonus.
Reflexes: Trance throughout in UEs, Neg Paz's BL
Sensory: Reduced vibration at the toes and ankles.
Coordination: No dysmetria or tremor.
Gait: deferred
Assessment and Plan:
I. Left C3/C4 radiculopathy. Likely etiology�spondylitic.
II. Influenza A infection with superimposed CAP with acute hypoxic respiratory failure
III. Transient encephalopathy, likely infectious/vascular (hypotension) hypoxic
IV. 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
V. Acute left sphenoid sinusitis.
-Avoid heavy lifting
-Flexeril as needed
-PT
-Continue pregabalin
-Please restart Topamax
-Outpatient neurology follow-up
-DVT prophylaxis.
I personally reviewed all radiology and labs along with past medical records pertinent to current medical problems. Total time spent in patient care is 35 minutes.
Thank you for allowing us to participate in the care of this patient. We will continue to follow. Please do not hesitate to contact us with any questions or concerns.
Objective Data
Vital Signs
Temp Pulse Resp BP Pulse Ox
36.9 C 59 18 120/69 95
06/22/24 07:27 06/22/24 07:27 06/22/24 07:27 06/22/24 07:27 06/22/24 08:00
Lab Results
06/20/24 06:22
01/13/25 06:22
Sodium 138 mmol/L (135-145) 06/20/24 06:22
Potassium 4.0 mmol/L (3.5-5.1) 06/20/24 06:22
BUN 17 mg/dl (7-17) 06/20/24 06:22
Glucose 92 mg/dl (70-99) 06/20/24 06:22
Calcium 8.3 mg/dl (8.4-10.2) L 06/20/24 06:22
Jgo-D-Jslagujchbi Pept 966 pg/ml 06/18/24 04:27
Patient Allergies
No Known Allergies Allergy (Unverified 06/16/24 14:59)
Vital Signs and Labs
-
Vital Signs and Labs:
Vital Signs
Temp Pulse Resp BP Pulse Ox
36.5 C 62 18 110/65 96
06/22/24 15:27 06/22/24 15:27 06/22/24 15:27 06/22/24 15:27 06/22/24 15:27
Lab Results
06/20/24 06:22
06/20/24 06:22
Sodium 138 mmol/L (135-145) 06/20/24 06:22
Potassium 4.0 mmol/L (3.5-5.1) 06/20/24 06:22
BUN 17 mg/dl (7-17) 06/20/24 06:22
Glucose 92 mg/dl (70-99) 06/20/24 06:22
Calcium 8.3 mg/dl (8.4-10.2) L 06/20/24 06:22
Dbt-Q-Oobkexbjlun Pept 966 pg/ml 06/18/24 04:27
Home Medications
-
Home Medications
acetaminophen 650 mg tablet,extended release (Tylenol 8 Hour) 1,300 mg PO TIDPRN PRN mild pain 06/16/24
biotin 10,000 mcg chewable tablet (Hair, Skin and Nails (biotin)) 10,000 mcg PO BID Supplement 06/16/24
calcium 600 mg (as carbonate)-vitamin D3 10 mcg (400 unit) tablet (Calcium 600 + D(3)) 1 tab PO BID Supplement 06/16/24
cholecalciferol (vitamin D3) 25 mcg (1,000 unit) tablet (Vitamin D3) 25 mcg PO BID Supplement 06/16/24
denosumab 60 mg/mL subcutaneous syringe (Prolia) 60 mg SC [id number] Bone 06/16/24
famotidine 40 mg tablet (Pepcid) 40 mg PO DAILY Gastrointestinal Issue 06/16/24
ginkgo biloba 120 mg tablet 120 mg PO BID Supplement 06/16/24
glucosamine 375 ws-yegryvxjo-xkm no1 500 mg-C 15 mg-daniel 0.5 mg tablet (Byhkgjszcqz-Nspnfdzzazv-NPR Complex) 1 tab PO DAILY Supplement 06/16/24
levocetirizine 5 mg tablet (Xyzal) 5 mg PO DAILY Allergies 06/16/24
yjswcqpuduyoc-FG-xslazoxxaagjh-guaifen 5 mg-10 mg-325 mg-200 mg tablet (Tylenol Cold and Flu Severe) 2 tab PO DAILYPRN PRN congestion 06/16/24
pregabalin 75 mg capsule (Lyrica) 150 mg PO DAILY Spinal stenosis 06/16/24
pregabalin 75 mg capsule (Lyrica) 225 mg PO HS Spinal stenosis 06/16/24
topiramate 100 mg tablet 100 mg PO HS Spinal stenosis 06/16/24
topiramate 100 mg tablet 112.5 mg PO DAILY Spinal stenosis 06/16/24
albuterol sulfate 90 mcg/actuation aerosol inhaler 2 puff inhalation Q6H PRN shortness of breath or wheezing #6.7 grams 06/21/24
cefdinir 300 mg capsule 300 mg PO Q12 3 days #6 caps 06/21/24
dextromethorphan-guaifenesin 10 mg-200 mg capsule (Robitussin Cough-Chest Congestion DM) 2 tab-cap (2 x 10-200 mg) PO Q6H PRN Cough #7 caps 06/21/24
--- NOTE | 2024-06-22 14:30 | W.PN.HOSP.TC ---
Today's Communication/Plan
-
Discharge home
More than 30 minutes spent in discharge including
Final examination of the patient
Summarizing hospital stay
Instructions for continuing care to all relevant caregivers
Preparation of discharge records, prescriptions, and referral forms
Total time spent (in minutes): 33mins
Assessment / Plan
Assessment / Plan
NAD
Scleral Anicteric
MMM
No JVD
CTABL
RRR, S1/S2
Soft, NT, ND, BS+
Warm, Dry
AAOx3
Calm
Acute hypoxemic respiratory failure, documented SpO2 of 85% on EMR secondary to influenza A and superimposed bacterial pneumonia
-Complete 5-day course of Tamiflu
-Transition from IV antibiotics to cefdinir until 06/24
-Respiratory therapy to assess home O2 needs
-Continue Acapella and incentive spirometer use
-Sputum culture no growth to date
Hyponatremia - resolved
TOMAS - resolved
Right upper facial pain believed to be cervical radiculopathy per neurology.
MRI diet brain obtained without evidence of seizures fifth 7th and 8th cranial nerve abnormality
Per neurology use of NSAIDs
Syncope
-Patient already having some pulmonary congestion
-Borderline/soft blood pressure, will add midodrine for pressure support, as needed has not required
Diplopia
Mild toxic metabolic encephalopathy
-MRI brain without any abnormality
-Encephalopathy likely from viral/bacterial pneumonia
-Neurology help appreciated
Osteoporosis
Spinal stenosis status post surgery
Full code
DVT prophylaxis�heparin
Discharge home
Anticipated Discharge: Today
Subjective/Interval History
-
Date of Service: June 22, 2024
Seen and examined. No new complaints. No acute overnight events.
Had some right-sided upper facial pain, burning like sensation that had been ongoing x 3
Objective Data
-
Vital Signs:
Vital Signs
Temp Pulse Resp BP Pulse Ox
98.4 F 59 18 120/69 95
06/22/24 07:27 06/22/24 07:27 06/22/24 07:27 06/22/24 07:27 06/22/24 08:00
I&O
06/21/24 06/22/24 06/23/24
06:59 06:59 06:59
Intake Total 960 / 960 1440 / 1440
Balance 960 / 960 1440 / 1440
--- NOTE | 2024-06-22 14:33 | W.DCSUMMARY ---
Addendum entered and electronically signed by Darrell Veliz MD 06/23/24 16:46:
Sepsis
Original Note:
Discharge Summary
Discharge Data
Date of Admission: 06/20/24
Date of Discharge: 06/22/24
-
Pending Results: No
Hospital Course
73-year-old female past medical history of osteoporosis
Presented with cough shortness of breath and syncope while at the breakfast table. Noted to have low oxygen started on supplemental oxygen. Chest x-ray without evidence of pneumonia. Was found to have influenza A. Started on Tamiflu. Additional
laboratory testing suggestive of superimposed bacterial pneumonia as procalcitonin was high therefore initiated on IV antibiotics. Completed Tamiflu on 06/21/2024. Evaluated by infectious diseases recommended to continue antibiotics until June
2024 with cefdinir. In terms of the syncope, evaluated by neurology, MRI was completed without evidence of acute intracranial abnormalities. Additionally demonstrated paranasal sinus disease as described including air-fluid levels within the
left sphenoid sinus and bilateral maxillary sinus could be suggestive of acute sinusitis. Neurology recommended outpatient ENT evaluation for sinusitis. Should be noted that Rocephin and doxycycline would cover this as well. Additionally, should
be noted found to have acute kidney injury with a creatinine of 1.3 however improved with IV hydration. Will need outpatient repeat chest x-ray with follow-up with PCP. As needed albuterol inhaler.
Was evaluated by respiratory therapy for home O2 assessment. With ambulation of 150 feet without evidence of hypoxemia as SpO2 remained greater than 94% per documentation on room air. 96% O2 saturation at rest on room air.
Return precautions provided
Had some left facial pain, therefore reevaluated by neurology and MRI was completed which did not demonstrate abnormalities of the fifth 7th and 8th cranial nerves as they appear grossly intact. Neurology believe this is likely secondary to
cervical radiculopathy recommended NSAIDs as needed
MRI Brain
IMPRESSION:
No acute intracranial abnormality noted. Specifically, the cerebellopontine angles and visualized portions of the 5th, 7th and 8th cranial nerves appear grossly intact.
MRI Brain
IMPRESSION: On thin section imaging, normal appearance of the IACs with no evidence for cerebellopontine angle mass.
No evidence of acute intracranial abnormality.
Paranasal sinus disease as described, including air-fluid levels within the left sphenoid sinus and bilateral maxillary sinuses. Air-fluid levels are suggestive of acute sinusitis and please correlate clinically.
CXR
IMPRESSION:
Focal parenchymal opacity in the right lower lung, highly suggestive of pneumonia.
Small focus of parenchymal opacity in the medial left lower lung, most likely atelectasis, although a small focus of pneumonia is also possible.
No evidence for associated pleural effusion bilaterally.
Repeat chest xray in 6-8weeks
Discharge Plan
-
Patient Disposition: Home with Home Care
Discharge Diagnosis/Procedures: Acute hypoxemic respiratory failure secondary to influenza A with superimposed bacterial pneumonia
Condition: Good
Diet: As tolerated
Activity: As tolerated
Activity Restrictions/Additional Instructions:
Presented with cough shortness of breath and syncope while at the breakfast table. Noted to have low oxygen started on supplemental oxygen. Chest x-ray without evidence of pneumonia. Was found to have influenza A. Started on Tamiflu. Additional
laboratory testing suggestive of superimposed bacterial pneumonia as procalcitonin was high therefore initiated on IV antibiotics. Completed Tamiflu on 06/21/2024. Evaluated by infectious diseases recommended to continue antibiotics until June
2024 with cefdinir. In terms of the syncope, evaluated by neurology, MRI was completed without evidence of acute intracranial abnormalities. Additionally demonstrated paranasal sinus disease as described including air-fluid levels within the
left sphenoid sinus and bilateral maxillary sinus could be suggestive of acute sinusitis. Neurology recommended outpatient ENT evaluation for sinusitis. Should be noted that Rocephin and doxycycline would cover this as well. Additionally, should
be noted found to have acute kidney injury with a creatinine of 1.3 however improved with IV hydration. Will need outpatient repeat chest x-ray with follow-up with PCP. As needed albuterol inhaler.
Was evaluated by respiratory therapy for home O2 assessment. With ambulation of 150 feet without evidence of hypoxemia as SpO2 remained greater than 94% per documentation on room air. 96% O2 saturation at rest on room air.
Return precautions provided
Had some left facial pain, therefore reevaluated by neurology and MRI was completed which did not demonstrate abnormalities of the fifth 7th and 8th cranial nerves as they appear grossly intact. Neurology believe this is likely secondary to
cervical radiculopathy recommended NSAIDs as needed
MRI Brain
IMPRESSION:
No acute intracranial abnormality noted. Specifically, the cerebellopontine angles and visualized portions of the 5th, 7th and 8th cranial nerves appear grossly intact.
MRI Brain
IMPRESSION: On thin section imaging, normal appearance of the IACs with no evidence for cerebellopontine angle mass.
No evidence of acute intracranial abnormality.
Paranasal sinus disease as described, including air-fluid levels within the left sphenoid sinus and bilateral maxillary sinuses. Air-fluid levels are suggestive of acute sinusitis and please correlate clinically.
CXR
IMPRESSION:
Focal parenchymal opacity in the right lower lung, highly suggestive of pneumonia.
Small focus of parenchymal opacity in the medial left lower lung, most likely atelectasis, although a small focus of pneumonia is also possible.
No evidence for associated pleural effusion bilaterally.
Repeat chest xray in 6-8weeks
Referrals:
Denny Kang DO [Family Provider] -
Prescriptions:
New
cefdinir 300 mg Capsule
300 mg PO Q12 3 Days Qty: 6 0RF
albuterol sulfate 90 mcg/actuation HFA aerosol inhaler
2 puff inhalation Q6H PRN (Reason: shortness of breath or wheezing) Qty: 6.7 0RF
Robitussin Cough-Chest Roly DM 10-200 mg capsule
2 tab-cap PO Q6H PRN (Reason: Cough) Qty: 7 0RF
Continued
topiramate 100 mg Tablet
112.5 mg PO DAILY
topiramate 100 mg Tablet
100 mg PO HS
famotidine [Pepcid] 40 mg Tablet
40 mg PO DAILY
acetaminophen [Tylenol 8 Hour] 650 mg Tablet Extended Release
1,300 mg PO TIDPRN PRN (Reason: mild pain)
ginkgo biloba 120 mg Tablet
120 mg PO BID
pregabalin [Lyrica] 75 mg Capsule
225 mg PO HS
pregabalin [Lyrica] 75 mg Capsule
150 mg PO DAILY
Tylenol Cold and Flu Severe [id number] mg Tablet
2 tab PO DAILYPRN PRN (Reason: congestion)
cholecalciferol (vitamin D3) [Vitamin D3] 25 mcg (1,000 unit) Tablet
25 mcg PO BID
calcium carbonate-vitamin D3 [Calcium 600 + D(3)] 600 mg-10 mcg (400 unit) Tablet
1 tab PO BID
levocetirizine [Xyzal] 5 mg Tablet
5 mg PO DAILY
Tootuadtdff-Xgjpz-NCG Complex 733-392-82-0.5 mg Tablet
1 tab PO DAILY
Prolia 60 mg/mL Syringe
60 mg SC [id number]
Hair, Skin and Nails (biotin) 10,000 mcg Tablet,Chewable
10,000 mcg PO BID
Discharge Orders:
Discharge Patient (As Directed); Ordered 06/22/24
Ordered By: Darrell Veliz
Discharge Date and Time
Print Language: [id number]
[2024-06-22 15:27] VITALS: BP 110/65
--- NOTE | 2024-06-22 16:24 | PN.CDI ---
CDI
- -
CDI:
Physician Documentation Request
Admit Date: 06/20/24 09:20
Dear Doctor Jose Alfredo,
Please review the following and provide your response in the progress notes.
Clinical Indicators:
Pt admitted with influenza A infection / found to have Bacterial PNA/ Acute Hypoxic respiratory Failure
ID consult, ' Since arrival here patient was initially spiking fevers to a Tmax of 103.0...Influenza APossible Superimposed Bacterial Pneumonia Leukopenia resolved...'
ID progress note , ' - c/w cefdinir for 7 day total course 06/18-06/24 continue tamiflu x5 days...'
On admission Tmax 100.9, Respirations 27 /Procal 16.5
Please clarify which of the following most accurately describes the status of the patient's infection:
Sepsis-POA
- Systemic manifestations of infection, with 2 or more SIRS criteria which include:
- Fever >100.4 degrees F or hypothermia < 96.8 degrees F
- Leukocytosis - WBC > 12,000 or leukopenia - WBC < 4,000 or > 10% bands
- Tachycardia > 90 beats per minute
- Tachypnea - RR > 20 breaths per minute or PaCO2 , 32mmHg
Source: [employer] Manual 2013
Influenza A , Without Systemic Illness
Other ( please specify)
Use of terms such as suspected, likely, concern for, or probable (associated with a specific diagnosis that is being evaluated, monitored, or treated as if it exists) are acceptable and can be coded in the inpatient setting, when documented at the
time of discharge.
Thank you,
Mabel Ghosh RN
CDI Specialist
[facility]
Please use your independent medical judgment in providing your response.
== END 2024-06-22 15:55 | disposition home health service (06) | DRG 871 ==
LOC: 4 WEST ACU 09:20
PROVIDERS: Hospitalist; Nurse Practitioner Family; ADMITTING PHYSICIAN Hospitalist; ATTENDING PHYSICIAN Hospitalist; CONSULT PHYSICIAN Psychiatry & Neurology Neurology; CONSULT PHYSICIAN Student in an Organized Health Care Education/Training Program; EMERGENCY PHYSICIAN Emergency Medicine; FAMILY PHYSICIAN Family Medicine
DX: A41.89 Other specified sepsis (principal); J10.01 Influenza due to other identified influenza virus with the same other identified influenza virus pneumonia; J96.01 Acute respiratory failure with hypoxia; J15.9 Unspecified bacterial pneumonia; G93.40 Encephalopathy, unspecified; N17.9 Acute kidney failure, unspecified; M81.0 Age-related osteoporosis without current pathological fracture; M48.00 Spinal stenosis, site unspecified; Z11.52 Encounter for screening for COVID-19; E55.9 Vitamin D deficiency, unspecified; K21.9 Gastro-esophageal reflux disease without esophagitis; M41.9 Scoliosis, unspecified; J01.30 Acute sphenoidal sinusitis, unspecified; G62.9 Polyneuropathy, unspecified; E86.0 Dehydration; H53.2 Diplopia; Z90.710 Acquired absence of both cervix and uterus; Z98.1 Arthrodesis status
CPT/HCPCS: 70551; 70553; 71045; 71046; 80048; 80053; 80202; 83605; 83880; 84145; 85025; 85027; 87070; 87205; 87502; 87641; 87811; 93005; 97116; 97162; 97167; 97530; 99285; A9575

== ENCOUNTER → 2024-07-20 12:42 | Outpatient (REF) | payer OTHER, SELFPAY | LOC: RAD 12:42 | PROVIDERS: ATTENDING PHYSICIAN Family Medicine | DX: J18.9 Pneumonia, unspecified organism (principal) | CPT/HCPCS: 71046 ==

== ENCOUNTER → 2024-09-21 09:03 | Outpatient (REF) | payer OTHER, SELFPAY ==
[2024-09-21 10:51] LABS: ALT (SGPT) 20 U/L (0-35); AST (SGOT) 28 U/L (14-36); Albumin 3.6 g/dl (3.5-5.0); Alkaline Phosphatase 49 U/L (38-126); Blood Urea Nitrogen 27 mg/dl (7-17); Calcium 9.8 mg/dl (8.4-10.2); Carbon Dioxide 25 mmol/L (22-30); Chloride 107 mmol/L (98-107); Glucose 88 mg/dl (70-99); Sodium 138 mmol/L (135-145); Total Bilirubin 0.3 mg/dl (0.2-1.3); Total Protein 6.1 g/dl (6.3-8.2); eGFR > 60.00
[2024-09-21 18:06] LABS: Vitamin D, 25-OH*** 80.1 ng/mL (30-80)
[2024-09-24 09:39] LABS: Intact PTH 41.9 pg/ml (13.6-85.8)
== END ==
LOC: REG 09:03
PROVIDERS: ATTENDING PHYSICIAN Internal Medicine Rheumatology; FAMILY PHYSICIAN Family Medicine
DX: E21.3 Hyperparathyroidism, unspecified (principal); E55.9 Vitamin D deficiency, unspecified; M81.0 Age-related osteoporosis without current pathological fracture
CPT/HCPCS: 36415; 80053; 82306; 83970

== ENCOUNTER → 2025-04-03 17:31 | Outpatient (REF) | payer OTHER, SELFPAY | LOC: PAVMRI 17:31 | PROVIDERS: ATTENDING PHYSICIAN Specialist; FAMILY PHYSICIAN Family Medicine | DX: M54.12 Radiculopathy, cervical region (principal) | CPT/HCPCS: 72141 ==